=== PATIENT | male | born 1990 | race Caucasian/White ===

== ENCOUNTER 2016-10-10 15:13 | Inpatient (IN) | payer BC, OTHER ==
[2016-10-10 21:09] VITALS: BMI 26.4
--- NOTE | 2016-10-10 21:26 | HP ---
COWS - Scale Resting Pulse: 0= [place] 80 or Below Sweatin=Flushed/Facial Moisture Restless Observation: 3= Extraneous Movement Pupil Size: 2= Moderately Dilated Bone or Joint Aches: 2= Severe Diffuse Aches Runny Nose/ Eye Tearin= Runny Nose/Eyes GI Upset > 30mins: 3= Vomiting/Diarrhea Tremor Observation: 2= Slight Tremor Visible Yawning Observation: 2= >3x During Session Anxiety or Irritability: 2=Irritable/Anxious Goose Flesh Skin: 0=Smooth Skin COWS Score: 20 CIWA Score - CIWA Score Nausea/Vomitin Muscle Tremors: 3 Anxiety: 3 Agitation: 3 Paroxysmal Sweats: 2 Orientation: 0-Oriented Tacttile Disturbances: 2-Mild Itch/Numbness/Burn Auditory Disturbances: 2-Mild Harshness/Frighten Visual Disturbances: 2-Mild Sensitivity Headache: 2-Mild CIWA-Ar Total Score: 22 Admission ROS BHS - HPI Chief Complaint: i am here to stop using drugs Allergies/Adverse Reactions: Allergies Allergy/AdvReac Type Severity Reaction Status Date / Time No Known Allergies Allergy Verified 10/10/16 20:48 History of Present Illness: this 25 years old male with heroin,xanax,and cocaine dependence,seeking detox, last treatment 11/29 [facility],then [facility] for 2 weeks relapsed for 5 months nicotine dependence denied medical problem anxiety,depression,insomnia longest period of sobriety 2 years Exam Limitations: No Limitations - Ebola screening Have you traveled outside of the country in the last 21 days: No - Review of Systems Constitutional: Chills, Diaphoresis, Loss of Appetite, Malaise, Night Sweats, Changes in sleep, Weakness EENT: reports: Tearing, Nose Congestion Respiratory: reports: No Symptoms reported Cardiac: reports: No Symptoms Reported GI: reports: Diarrhea, Nausea, Vomiting, Abdominal cramping : reports: No Symptoms Reported Musculoskeletal: reports: Back Pain, Joint Pain, Muscle Pain, Joint Stiffness Integumentary: reports: Dryness Neuro: reports: Headache, Tremors Endocrine: reports: No Symptoms Reported Hematology: reports: No Symptoms Reported Psychiatric: reports: Anxious (insomnia), Depressed Patient History - Patient Medical History Hx Anemia: No Hx Asthma: No Hx Chronic Obstructive Pulmonary Disease (COPD): No Hx Cancer: No Hx Cardiac Disorders: No Hx Congestive Heart Failure: No Hx Hypertension: No Hx Hypercholesterolemia: No Hx Pacemaker: No HX Cerebrovascular Accident: No Hx Seizures: No Hx Dementia: No Hx Diabetes: No Hx Gastrointestinal Disorders: No Hx Liver Disease: No Hx Genitourinary Disorders: No Hx Sexually Transmitted Disorders: No Hx Renal Disease (ESRD): No Hx Thyroid Disease: No Hx Human Immunodeficiency Virus (HIV): No (last 2015 negative) Hx Hepatitis C: No Hx Depression: Yes (AND ANXIETY) Hx Suicide Attempt: No Hx Bipolar Disorder: No Hx Schizophrenia: No Other Medical History: insomnia,no suicidal,no homicidal - Patient Surgical History Past Surgical History: No Hx Neurologic Surgery: No Hx Cataract Extraction: No Hx Cardiac Surgery: No Hx Lung Surgery: No Hx Breast Surgery: No Hx Breast Biopsy: No Hx Abdominal Surgery: No Hx Appendectomy: No Hx Cholecystectomy: No Hx Genitourinary Surgery: No Hx Section: No Hx Orthopedic Surgery: No Anesthesia Reaction: No - PPD History Previous Implant?: Yes Documented Results: Negative w/proof Date: 12/25/14 Results: 0 mm PPD to be Administered?: No - Smoking Cessation Smoking history: Current every day smoker Have you smoked in the past 12 months: Yes Aproximately how many cigarettes per day: 10 Cigars Per Day: 0 Hx Chewing Tobacco Use: No Initiated information on smoking cessation: No 'Breaking Loose' booklet given: 10/10/16 - Substance & Tx. History Hx Alcohol Use: Yes Hx Substance Use: Yes Substance Use Type: Alcohol, Cocaine, Heroin, Tranquilizers Hx Substance Use Treatment: Yes - Substances Abused Heroin Route: Injection Frequency: Daily Amount used: 5 BAGS Age of first use: 21 Date of Last Use: 10/10/16 Alprazolam (Xanax) Route: Oral Frequency: Daily Amount used: 4mg Age of first use: 18 Date of Last Use: 10/10/16 Alcohol Route: Oral Frequency: Daily Amount used: liquor- 1 pint, beer- 1 six pack Age of first use: 15 Date of Last Use: 10/09/16 Cocaine Route: Injection Frequency: Daily Amount used: 3gm Age of first use: 21 Date of Last Use: 10/10/16 Family Disease History - Family Disease History Family Disease History: Other: Father (dependent on alcohol), Mother (opiate use ) Admission Physical Exam BHS - Vital Signs Vital Signs: Vital Signs - 24 hr 10/10/16 21:06 Temperature 96.4 F L Pulse Rate 67 Respiratory 18 Rate Blood Pressure 130/90 - Physical General Appearance: Yes: Moderate Distress, Thin, Tremorous, Irritable, Sweating , Anxious HEENTM: Yes: Hearing grossly Normal, Normal ENT Inspection, LAMIN, Pharynx Normal Respiratory: Yes: Within Normal Limits, Lungs Clear, No Respiratory Distress Neck: Yes: Within Normal Limits, Supple, Trachea in good position Breast: Yes: Within Normal Limits Cardiology: Yes: Regular Rhythm, Regular Rate, S1, S2 Abdominal: Yes: Within Normal Limits, Normal Bowel Sounds, Non Tender, Flat, Soft Genitourinary: Yes: Within Normal Limits Back: Yes: Muscle Spasm Musculoskeletal: Yes: full range of Motion, Back pain, Joint Stiffness, Muscle Pain Extremities: Yes: Within Normal Limits, Normal Range of Motion, Tremors 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 intact, Fully Oriented, Alert, Motor Strength 5/5 Integumentary: Yes: Dry Lymphatic: Yes: Within Normal Limits - Diagnostic (1) Alcohol dependence with uncomplicated withdrawal Current Visit: No Status: Acute (2) Opioid dependence with withdrawal Current Visit: No Status: Acute (3) Sedative, hypnotic or anxiolytic dependence with withdrawal, uncomplicated Current Visit: No Status: Acute (4) Anxiety and depression Current Visit: No Status: Chronic (5) Cocaine abuse Current Visit: No Status: Chronic (6) Insomnia Current Visit: Yes Status: Acute (7) Nicotine dependence Current Visit: No Status: Chronic Qualifiers: Nicotine product type: cigarettes Substance use status: uncomplicated Qualified Code(s): F17.210 - Nicotine dependence, cigarettes, uncomplicated Cleared for Admission [facility] - Detox or Rehab [facility] Level of Care: Medically Managed Detox Regimen/Protocol: Methadone/Valium [facility] Breath Alcohol Content Breath Alcohol Content: 0 Urine Drug Screen - Results Drug Screen Negative: No Urine Drug Screen Results: ROBB-Cocaine, OPI-Opiates, BZO-Benzodiazepines
[2016-10-10] MEDS ORDERED: MAGNESIUM CITRATE 300 ML BOTTLE PO PRN (21:39)
[2016-10-10] MEDS ORDERED: hydrOXYzine PAMOATE 50 MG CAPSULE (FP) PO PRN (21:39)
[2016-10-10] MEDS ORDERED: LOPERAMIDE HCL 2 MG CAPSULE PO PRN (21:39)
[2016-10-10] MEDS ORDERED: MAGNESIUM HYDROX 2400MG/30ML ORAL SUSPENSION 30 ML CUP PO PRN (21:39)
[2016-10-10] MEDS ORDERED: MAG HYDROX/AL HYDROX/SIMETH 30 ML UNIT-DOSE CUP PO PRN (21:39)
[2016-10-10] MEDS ORDERED: METHADONE HCL 10 MG TABLET (FOR DETOX USE ONLY) PO ONE ×2 (21:39→23:00)
[2016-10-10] MEDS ORDERED: diphenhydrAMINE HCL 50 MG CAPSULE PO PRN (21:39)
[2016-10-10] MEDS ORDERED: diazePAM 5 MG TABLET PO ONE (21:39)
[2016-10-10] MEDS ORDERED: MENTHOL/PHENOL 1 EACH UD MM PRN (21:39)
[2016-10-10] MEDS ORDERED: IBUPROFEN 400 MG TABLET (FP) PO PRN (21:39)
[2016-10-10] MEDS ORDERED: guaiFENesin/D-METHORPHAN HB 10 ML UNIT-DOSE CUPS PO PRN (21:39)
[2016-10-10] MEDS ORDERED: P-EPHED 60MG/TRIPROLIDI 2.5MG TABLET PO PRN (21:39)
[2016-10-10] MEDS ORDERED: ACETAMINOPHEN 325 MG TABLET (FP) PO PRN (21:39)
[2016-10-10] MEDS: diazePAM 5 MG TABLET PO SCH (22:01)
[2016-10-10] MEDS: THIAMINE HCL 100 MG TABLET (FP) PO SCH (22:02)
[2016-10-10] MEDS: cloNIDine HCL 0.1 MG TABLET PO SCH (22:02)
[2016-10-11 01:45] LABS: URINE APPEARANCE CLEAR; URINE BILIRUBIN NEGATIVE (NEGATIVE); URINE BLOOD NEGATIVE (NEGATIVE); URINE COLOR YELLOW; URINE GLUCOSE (UA) NEGATIVE (NEGATIVE); URINE KETONE NEGATIVE (NEGATIVE); URINE LEUK ESTERASE NEGATIVE (NEGATIVE); URINE NITRITE NEGATIVE (NEGATIVE); URINE PROTEIN NEGATIVE (NEGATIVE); URINE UROBILINOGEN NEGATIVE mg/dL (0.2-1.0)
[2016-10-11] MEDS: diazePAM 5 MG TABLET PO SCH ×3 (05:41→22:25)
[2016-10-11] MEDS ORDERED: METHADONE HCL 10 MG TABLET (FOR DETOX USE ONLY) PO SCH (10:00)
[2016-10-11] MEDS: diazePAM 5 MG TABLET PO PRN ×3 (10:06→19:23)
[2016-10-11] MEDS: PRENATAL VITAMINS W/ FOLIC ACID TABLET (FP) PO SCH (10:07)
[2016-10-11] MEDS: cloNIDine HCL 0.1 MG TABLET PO SCH ×2 (10:07→22:24)
[2016-10-11 10:37] LABS: MCH 30.5 pg (25.7-33.7); MCHC 34.8 g/dl (32.0-35.9); MEAN CELL VOLUME 87.7 fl (80-96); PLATELET COUNT 178 K/MM3 (134-434); RDW 12.2 % (11.9-15.9); WHITE BLOOD COUNT 5.2 K/mm3 (4.0-10.0)
[2016-10-11 10:45] LABS: ALBUMIN 3.6 g/dl (3.4-5.0); ANION GAP 8 (8-16); CALCIUM 8.6 mg/dL (8.5-10.1); CO2 30 mmol/L (21-32); GLUCOSE,RANDOM 71 mg/dL (74-106)
[2016-10-11 10:49] LABS: ALK PHOS 60 U/L (45-117); BILIRUBIN,TOTAL 1.6 mg/dL (0.2-1.0); SGOT/AST 22 U/L (15-37); SGPT/ALT 24 U/L (12-78); TOT PROT 6.5 g/dl (6.4-8.2)
--- NOTE | 2016-10-11 10:49 | CONSULT ---
[facility] Psychiatric Consult - Data Date of interview: 10/11/16 Admission source: [facility] Identifying data: This is 25 year old male, abele residing with his father. Substance Abuse History: Patient reports started heroin at age of 21, injecting 5 bags a day, Xanax started at age of 18, daily use up to 4 mg, alcohol starte rupa age of 15, daily consumes liquor 1 pint, beer 1 six packs. Medical History: none reported Psychiatric History: Past history of ADHD, treated with abilify, ritalin, stopped medications years ago, reports one psychiatric hospitaliztion at age of 15 for 2 days at [facility] in [place] Not on any psychotropics now. 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 He reports he sleeps well, appetite is improving. Physical/Sexual Abuse/Trauma History: Denies history of sexual,physical and verbal abuse. Mental Status Exam - Mental Status Exam Alert and Oriented to: Time, Place, Person Cognitive Function: Grossly Intact Patient Appearance: Well Groomed Mood: Anxious Affect: Appropriate, Mood Congruent Patient Behavior: Appropriate, Cooperative Speech Pattern: Appropriate Voice Loudness: Normal Thought Process: Intact, Goal Oriented Thought Disorder: Not Present Hallucinations: Denies Suicidal Ideation: Denies Homicidal Ideation: Denies Insight/Judgement: Fair Sleep: Fair Appetite: Fair Muscle strength/Tone: Normal Gait/Station: Normal Psychiatric Findings - Problem List ([place] 1, 2,3) (1) Drug-induced mood disorder Current Visit: No Status: Acute (2) Opioid dependence Current Visit: No Status: Active (3) Alcohol dependence with uncomplicated withdrawal Current Visit: No Status: Acute (4) Opioid dependence with withdrawal Current Visit: No Status: Acute (5) Sedative dependence Current Visit: No Status: Acute (6) Sedative, hypnotic or anxiolytic dependence with withdrawal, uncomplicated Current Visit: No Status: Acute - Initial Treatment Plan Initial Treatment Plan: continue detox, psychotherapy and supports provided.
--- NOTE | 2016-10-11 16:50 | PN ---
[facility] CIWA - CIWA Score Nausea/Vomitin-No Nausea/No Vomiting Muscle Tremors: 3 Anxiety: 4-Mod. Anxious/Guarded Agitation: 1-Slight > Activity Paroxysmal Sweats: 3 Orientation: 0-Oriented Tacttile Disturbances: 3-Moderate Itch/Numb/Burn Auditory Disturbances: 2-Mild Harshness/Frighten Visual Disturbances: 3-Moderate Sensitivity Headache: 0-None Present CIWA-Ar Total Score: 19 BHS COWS - Scale Resting Pulse: 0= [place] 80 or Below Sweatin= Chills/Flushing Restless Observation: 0= Sits Still Pupil Size: 0= Normal to Room Light Bone or Joint Aches: 2= Severe Diffuse Aches Runny Nose/ Eye Tearin= Runny Nose/Eyes GI Upset > 30mins: 1= Stomach Cramp Tremor Observation of Outstretched Hands: 2= Slight Tremor Visible Yawning Observation: 2= >3x During Session Anxiety or Irritability: 2=Irritable/Anxious Goose Flesh Skin: 3=Piloerection COWS Score: 15 S Progress Note (SOAP) Subjective: Stomach Cramping, Anxious, Body Aches. Objective: PT. A & O X 3, OBSERVED AMBULATING ON UNIT. NO ACUTE DISTRESS. 10/11/16 16:48 Vital Signs Temperature 96.3 F L 10/11/16 13:59 Pulse Rate 54 L 10/11/16 13:59 Respiratory Rate 18 10/11/16 13:59 Blood Pressure 109/51 10/11/16 13:59 O2 Sat by Pulse Oximetry (%) Laboratory Tests 10/10/16 10/11/16 10/11/16 22:36 08:00 08:00 WBC 5.2 RBC 4.53 Hgb 13.8 Hct 39.7 MCV 87.7 MCH 30.5 MCHC 34.8 RDW 12.2 Plt Count 178 MPV 9.0 Sodium 139 Potassium 3.6 Chloride 101 Carbon Dioxide 30 Anion Gap 8 BUN 16 Creatinine 1.0 D Creat Clearance w eGFR > 60 Random Glucose 71 L D Calcium 8.6 Total Bilirubin 1.6 H D AST 22 D ALT 24 D Alkaline Phosphatase 60 Total Protein 6.5 Albumin 3.6 Urine Color Yellow Urine Appearance Clear Urine pH 6.0 D Ur Specific [place] 1.025 Urine Protein Negative Urine Glucose (UA) Negative Urine Ketones Negative Urine Blood Negative Urine Nitrite Negative Urine Bilirubin Negative Urine Urobilinogen Negative Ur Leukocyte Esterase Negative RPR Titer 10/11/16 08:00 WBC RBC Hgb Hct MCV MCH MCHC RDW Plt Count MPV Sodium Potassium Chloride Carbon Dioxide Anion Gap BUN Creatinine Creat Clearance w eGFR Random Glucose Calcium Total Bilirubin AST ALT Alkaline Phosphatase Total Protein Albumin Urine Color Urine Appearance Urine pH Ur Specific [place] Urine Protein Urine Glucose (UA) Urine Ketones Urine Blood Urine Nitrite Urine Bilirubin Urine Urobilinogen Ur Leukocyte Esterase RPR Titer Nonreactive LABS NOTED. Assessment: 10/11/16 16:49 WITHDRAWAL SYMPTOMS. Plan: CONTINUE DETOX. INCREASE PO FLUID INTAKE.
[2016-10-11] MEDS: THIAMINE HCL 100 MG TABLET (FP) PO SCH (22:25)
[2016-10-11] MEDS: CYCLOBENZAPRINE HCL 10 MG TABLET (FP) PO PRN (22:26)
[2016-10-12] MEDS: diazePAM 5 MG TABLET PO PRN ×3 (05:51→16:52)
[2016-10-12] MEDS: METHADONE HCL 5 MG TABLET (FOR DETOX USE ONLY) PO SCH (10:19)
[2016-10-12] MEDS: cloNIDine HCL 0.1 MG TABLET PO SCH ×2 (10:19→22:12)
[2016-10-12] MEDS: diazePAM 5 MG TABLET PO SCH ×2 (10:19→22:12)
[2016-10-12] MEDS: PRENATAL VITAMINS W/ FOLIC ACID TABLET (FP) PO SCH (10:19)
--- NOTE | 2016-10-12 16:00 | PN ---
S CIWA - CIWA Score Nausea/Vomitin Muscle Tremors: 4-Moderate,w/Arms Extend Anxiety: 4-Mod. Anxious/Guarded Agitation: 4-Moderately Restless Paroxysmal Sweats: 1-Minimal Palms Moist Orientation: 0-Oriented Tacttile Disturbances: 1-Very Mild Itch/Numbness Auditory Disturbances: 0-None Visual Disturbances: 0-None Headache: 2-Mild CIWA-Ar Total Score: 19 BHS COWS - Scale Resting Pulse: 0= [place] 80 or Below Sweatin= Chills/Flushing Restless Observation: 3= Extraneous Movement Pupil Size: 1= Pupils >than Normal Bone or Joint Aches: 2= Severe Diffuse Aches Runny Nose/ Eye Tearin= Nasal Congestion GI Upset > 30mins: 2= Nausea/Diarrhea Tremor Observation of Outstretched Hands: 2= Slight Tremor Visible Yawning Observation: 1= 1-2x During Session Anxiety or Irritability: 2=Irritable/Anxious Goose Flesh Skin: 0=Smooth Skin COWS Score: 15 S Progress Note (SOAP) Subjective: Sweating, chills, tremor, interrupted sleep Objective: 10/12/16 15:59 Last Vital Signs Temp Pulse Resp BP Pulse Ox 96.8 F L 61 18 112/61 10/12/16 14:01 10/12/16 14:01 10/12/16 14:01 10/12/16 14:01 Laboratory Tests 10/10/16 10/11/16 10/11/16 22:36 08:00 08:00 WBC 5.2 RBC 4.53 Hgb 13.8 Hct 39.7 MCV 87.7 MCH 30.5 MCHC 34.8 RDW 12.2 Plt Count 178 MPV 9.0 Sodium 139 Potassium 3.6 Chloride 101 Carbon Dioxide 30 Anion Gap 8 BUN 16 Creatinine 1.0 D Creat Clearance w eGFR > 60 Random Glucose 71 L D Calcium 8.6 Total Bilirubin 1.6 H D AST 22 D ALT 24 D Alkaline Phosphatase 60 Total Protein 6.5 Albumin 3.6 Urine Color Yellow Urine Appearance Clear Urine pH 6.0 D Ur Specific [place] 1.025 Urine Protein Negative Urine Glucose (UA) Negative Urine Ketones Negative Urine Blood Negative Urine Nitrite Negative Urine Bilirubin Negative Urine Urobilinogen Negative Ur Leukocyte Esterase Negative RPR Titer 10/11/16 08:00 WBC RBC Hgb Hct MCV MCH MCHC RDW Plt Count MPV Sodium Potassium Chloride Carbon Dioxide Anion Gap BUN Creatinine Creat Clearance w eGFR Random Glucose Calcium Total Bilirubin AST ALT Alkaline Phosphatase Total Protein Albumin Urine Color Urine Appearance Urine pH Ur Specific [place] Urine Protein Urine Glucose (UA) Urine Ketones Urine Blood Urine Nitrite Urine Bilirubin Urine Urobilinogen Ur Leukocyte Esterase RPR Titer Nonreactive Labs noted Assessment: 10/12/16 15:59 Withdrawal symptoms Plan: Continue detox
[2016-10-12] MEDS: THIAMINE HCL 100 MG TABLET (FP) PO SCH (22:12)
[2016-10-13] MEDS: CYCLOBENZAPRINE HCL 10 MG TABLET (FP) PO PRN ×2 (06:04→14:46)
[2016-10-13] MEDS: diazePAM 5 MG TABLET PO PRN ×3 (06:04→17:07)
--- NOTE | 2016-10-13 10:00 | EKG ---
Test Reason : Blood Pressure : / mmHG Vent. Rate : 061 BPM Atrial Rate : 061 BPM P-R Int : 156 ms QRS Dur : 088 ms QT Int : 420 ms P-R-T Axes : 061 075 055 degrees QTc Int : 422 ms NORMAL SINUS RHYTHM POSSIBLE LEFT ATRIAL ENLARGEMENT LEFT VENTRICULAR HYPERTROPHY ABNORMAL ECG NO PREVIOUS ECGS AVAILABLE Confirmed by KAUR BLAS, SERVANDO ([id number]) on 10/13/2016 9:59:06 AM Referred By: Greg Webber Confirmed By:SERVANDO DIETRICH MD
[2016-10-13] MEDS: METHADONE HCL 5 MG TABLET (FOR DETOX USE ONLY) PO SCH (10:19)
[2016-10-13] MEDS: cloNIDine HCL 0.1 MG TABLET PO SCH ×2 (10:19→22:29)
[2016-10-13] MEDS: diazePAM 5 MG TABLET PO SCH ×2 (10:19→22:28)
[2016-10-13] MEDS: PRENATAL VITAMINS W/ FOLIC ACID TABLET (FP) PO SCH (10:19)
--- NOTE | 2016-10-13 14:53 | PN ---
BHS Progress Note (SOAP) Subjective: Sweating,interrupted sleep,restless Objective: 10/13/16 14:52 Vital Signs - 8 hr 10/13/16 10/13/16 09:30 13:30 Temperature 96.5 F L 96.6 F L Pulse Rate 60 46 L Respiratory 18 19 Rate Blood Pressure 119/69 121/57 Laboratory Last Values WBC 5.2 K/mm3 (4.0-10.0) 10/11/16 08:00 RBC 4.53 M/mm3 (4.00-5.60) 10/11/16 08:00 Hgb 13.8 GM/dL (11.7-16.9) 10/11/16 08:00 Hct 39.7 % (35.4-49) 10/11/16 08:00 MCV 87.7 fl (80-96) 10/11/16 08:00 MCH 30.5 pg (25.7-33.7) 10/11/16 08:00 MCHC 34.8 g/dl (32.0-35.9) 10/11/16 08:00 RDW 12.2 % (11.9-15.9) 10/11/16 08:00 Plt Count 178 K/MM3 (134-434) 10/11/16 08:00 MPV 9.0 fl (7.5-11.1) 10/11/16 08:00 Sodium 139 mmol/L (136-145) 10/11/16 08:00 Potassium 3.6 mmol/L (3.5-5.1) 10/11/16 08:00 Chloride 101 mmol/L (98-107) 10/11/16 08:00 Carbon Dioxide 30 mmol/L (21-32) 10/11/16 08:00 Anion Gap 8 (8-16) 10/11/16 08:00 BUN 16 mg/dL (7-18) 10/11/16 08:00 Creatinine 1.0 mg/dL (0.7-1.3) D 10/11/16 08:00 Creat Clearance w eGFR > 60 (>60) 10/11/16 08:00 Random Glucose 71 mg/dL (74-106) L D 10/11/16 08:00 Calcium 8.6 mg/dL (8.5-10.1) 10/11/16 08:00 Total Bilirubin 1.6 mg/dL (0.2-1.0) H D 10/11/16 08:00 AST 22 U/L (15-37) D 10/11/16 08:00 ALT 24 U/L (12-78) D 10/11/16 08:00 Alkaline Phosphatase 60 U/L (45-117) 10/11/16 08:00 Total Protein 6.5 g/dl (6.4-8.2) 10/11/16 08:00 Albumin 3.6 g/dl (3.4-5.0) 10/11/16 08:00 Urine Color Yellow 10/10/16 22:36 Urine Appearance Clear 10/10/16 22:36 Urine pH 6.0 (5.0-8.0) D 10/10/16 22:36 Ur Specific [place] 1.025 (1.005-1.025) 10/10/16 22:36 Urine Protein Negative (NEGATIVE) 10/10/16 22:36 Urine Glucose (UA) Negative (NEGATIVE) 10/10/16 22:36 Urine Ketones Negative (NEGATIVE) 10/10/16 22:36 Urine Blood Negative (NEGATIVE) 10/10/16 22:36 Urine Nitrite Negative (NEGATIVE) 10/10/16 22:36 Urine Bilirubin Negative (NEGATIVE) 10/10/16 22:36 Urine Urobilinogen Negative mg/dL (0.2-1.0) 10/10/16 22:36 Ur Leukocyte Esterase Negative (NEGATIVE) 10/10/16 22:36 RPR Titer Nonreactive (NONREACTIVE) 10/11/16 08:00 labs noted Assessment: 10/13/16 14:52 Withdrawal sx. Plan: Continue detox
[2016-10-13] MEDS: THIAMINE HCL 100 MG TABLET (FP) PO SCH (22:28)
[2016-10-14] MEDS: CYCLOBENZAPRINE HCL 10 MG TABLET (FP) PO PRN (06:49)
[2016-10-14] MEDS: cloNIDine HCL 0.1 MG TABLET PO SCH (09:50)
[2016-10-14] MEDS: PRENATAL VITAMINS W/ FOLIC ACID TABLET (FP) PO SCH (09:50)
[2016-10-14] MEDS ORDERED: METHADONE HCL 10 MG TABLET (FOR DETOX USE ONLY) PO SCH (10:00)
[2016-10-14] MEDS ORDERED: diazePAM 5 MG TABLET PO SCH (10:00)
[2016-10-14 10:06] VITALS: BP 129/58; PULSE 73; TEMP 96.7
--- NOTE | 2016-10-14 10:42 | DS ---
[facility] Detox Discharge Summary Admission Date: 10/10/16 Discharge Date: 10/14/16 - History Present History: Alcohol Dependence, Opioid Dependence, Sedative Dependence Additional Comments: PT DECLINED TO COMPLETE DETOX DESPITE ENCOURAGEMENT TO FOCUS ON TREATMENT AND SOBRIETY. PT STATES HE HAS TO LEAVE TO COLLECT HIS MONEY FROM HIS EX-GIRLFRIED AND DOESN'T WANT HER TO HOLD IT. PT IS ALERT O X 3. NAD. BUT LIMITED INSIGHT TO TREATMENT GOALS. PT SPOKE TO HIS COUNSELOR. Pertinent Past History: SEIZURE DISORDER DEPRESSION/ANXIETY HX HX ADHD - Physical Exam Results Vital Signs: Vital Signs Temperature 96.7 F L 10/14/16 10:05 Pulse Rate 73 10/14/16 10:05 Respiratory Rate 18 10/14/16 10:05 Blood Pressure 129/58 10/14/16 10:05 O2 Sat by Pulse Oximetry (%) Pertinent Admission Physical Exam Findings: WITHDRAWAL SX Vital Signs Temperature 96.7 F L 10/14/16 10:05 Pulse Rate 73 10/14/16 10:05 Respiratory Rate 18 10/14/16 10:05 Blood Pressure 129/58 10/14/16 10:05 O2 Sat by Pulse Oximetry (%) Laboratory Last Values WBC 5.2 K/mm3 (4.0-10.0) 10/11/16 08:00 RBC 4.53 M/mm3 (4.00-5.60) 10/11/16 08:00 Hgb 13.8 GM/dL (11.7-16.9) 10/11/16 08:00 Hct 39.7 % (35.4-49) 10/11/16 08:00 MCV 87.7 fl (80-96) 10/11/16 08:00 MCH 30.5 pg (25.7-33.7) 10/11/16 08:00 MCHC 34.8 g/dl (32.0-35.9) 10/11/16 08:00 RDW 12.2 % (11.9-15.9) 10/11/16 08:00 Plt Count 178 K/MM3 (134-434) 10/11/16 08:00 MPV 9.0 fl (7.5-11.1) 10/11/16 08:00 Sodium 139 mmol/L (136-145) 10/11/16 08:00 Potassium 3.6 mmol/L (3.5-5.1) 10/11/16 08:00 Chloride 101 mmol/L (98-107) 10/11/16 08:00 Carbon Dioxide 30 mmol/L (21-32) 10/11/16 08:00 Anion Gap 8 (8-16) 10/11/16 08:00 BUN 16 mg/dL (7-18) 10/11/16 08:00 Creatinine 1.0 mg/dL (0.7-1.3) D 10/11/16 08:00 Creat Clearance w eGFR > 60 (>60) 10/11/16 08:00 Random Glucose 71 mg/dL (74-106) L D 10/11/16 08:00 Calcium 8.6 mg/dL (8.5-10.1) 10/11/16 08:00 Total Bilirubin 1.6 mg/dL (0.2-1.0) H D 10/11/16 08:00 AST 22 U/L (15-37) D 10/11/16 08:00 ALT 24 U/L (12-78) D 10/11/16 08:00 Alkaline Phosphatase 60 U/L (45-117) 10/11/16 08:00 Total Protein 6.5 g/dl (6.4-8.2) 10/11/16 08:00 Albumin 3.6 g/dl (3.4-5.0) 10/11/16 08:00 Urine Color Yellow 10/10/16 22:36 Urine Appearance Clear 10/10/16 22:36 Urine pH 6.0 (5.0-8.0) D 10/10/16 22:36 Ur Specific [place] 1.025 (1.005-1.025) 10/10/16 22:36 Urine Protein Negative (NEGATIVE) 10/10/16 22:36 Urine Glucose (UA) Negative (NEGATIVE) 10/10/16 22:36 Urine Ketones Negative (NEGATIVE) 10/10/16 22:36 Urine Blood Negative (NEGATIVE) 10/10/16 22:36 Urine Nitrite Negative (NEGATIVE) 10/10/16 22:36 Urine Bilirubin Negative (NEGATIVE) 10/10/16 22:36 Urine Urobilinogen Negative mg/dL (0.2-1.0) 10/10/16 22:36 Ur Leukocyte Esterase Negative (NEGATIVE) 10/10/16 22:36 RPR Titer Nonreactive (NONREACTIVE) 10/11/16 08:00 - Treatment Hospital Course: Discharged Condition Good - Medication Discharge Medications: Ambulatory Orders NK [No Known Home Medication] 09/17/14 - Diagnosis (1) Alcohol dependence with uncomplicated withdrawal Current Visit: Yes Status: Acute (2) Opioid dependence with withdrawal Current Visit: Yes Status: Acute (3) Sedative, hypnotic or anxiolytic dependence with withdrawal, uncomplicated Current Visit: Yes Status: Acute (4) Nicotine dependence Current Visit: Yes Status: Chronic Qualifiers: Nicotine product type: cigarettes Substance use status: in withdrawal Qualified Code(s): F17.213 - Nicotine dependence, cigarettes, with withdrawal (5) Seizure Current Visit: Yes Status: Suspected (6) Drug-induced mood disorder Current Visit: Yes Status: Acute - AMA Did Patient Leave Against Medical Advice: Yes (AMA)
[2016-10-15] MEDS ORDERED: METHADONE HCL 5 MG TABLET (FOR DETOX USE ONLY) PO SCH (06:00)
== END 2016-10-14 10:46 | disposition left against medical advice (07) | DRG 894 ==
LOC: YASAS 15:13 → Y3N 21:01
PROVIDERS: ADMIT Internal Medicine; ATTEND Internal Medicine
PROC: HZ2ZZZZ Detoxification Services for Substance Abuse Treatment (ICD-10-PCS; principal; 2016-10-14)
DX: F11.23 Opioid dependence with withdrawal (principal); F13.230 Sedative, hypnotic or anxiolytic dependence with withdrawal, uncomplicated; F10.230 Alcohol dependence with withdrawal, uncomplicated; F17.210 Nicotine dependence, cigarettes, uncomplicated; F19.24 Other psychoactive substance dependence with psychoactive substance-induced mood disorder; F41.8 Other specified anxiety disorders; F90.9 Attention-deficit hyperactivity disorder, unspecified type; G47.00 Insomnia, unspecified
CPT/HCPCS: 36415; 80053; 81003; 85027; 86593; 93005; 93010

== ENCOUNTER 2017-07-04 16:12 | Inpatient (IN) | payer BC, OTHER ==
[2017-07-04 16:38] VITALS: BMI 29.9
--- NOTE | 2017-07-04 20:06 | HP ---
COWS - Scale Resting Pulse: 0= [place] 80 or Below Sweatin=Flushed/Facial Moisture Restless Observation: 1= Difficult to Sit Still Pupil Size: 1= Pupils >than Normal Bone or Joint Aches: 4=Acute Joint/Muscle Pain Runny Nose/ Eye Tearin= Nasal Congestion GI Upset > 30mins: 0= None Tremor Observation: 2= Slight Tremor Visible Yawning Observation: 4= Several Times/Minute Anxiety or Irritability: 2=Irritable/Anxious Goose Flesh Skin: 0=Smooth Skin COWS Score: 17 CIWA Score - CIWA Score Nausea/Vomitin-No Nausea/No Vomiting Muscle Tremors: 3 Anxiety: 3 Agitation: 3 Paroxysmal Sweats: 3 Orientation: 0-Oriented Tacttile Disturbances: 0-None Auditory Disturbances: 0-None Visual Disturbances: 0-None Headache: 4-Moderately Severe CIWA-Ar Total Score: 16 Admission ROS S - HPI Chief Complaint: C/O WITHDRAWAL SX'S . SEEKING DETOX FOR ALCHOL, BENZO AND HEROINE Allergies/Adverse Reactions: Allergies Allergy/AdvReac Type Severity Reaction Status Date / Time No Known Allergies Allergy Verified 07/04/17 18:09 History of Present Illness: 26 Y.O. MALE WITH POLYSUBSTANCE ABUSE HERE FOR INPATIENT DETOX AFTER A DRUG OVERDOSE YESTERDAY. HE WAS SEEN AND STABILIZED AT [facility]. CLIENT WAS LAST HERE 10 MONTHS AGO. DENIES ANY INPATIENT TXMENT SINCE.SELF REFERRED. DENIES ANY SIGNIFICANT PERIOD OF CLEAN TIME. PMHX HEPC, ANXIETY, DEPRESSION AND ADHD. DENIES ANY SI/HI AND A/V HALLUCINATIONS. DENIES LEGALS Exam Limitations: No Limitations - Ebola screening Have you traveled outside of the country in the last 21 days: No (N) Have you had contact with anyone from an Ebola affected area: No Have you been sick,other than usual withdrawal symptoms: No Do you have a fever: No - Review of Systems Constitutional: Chills, Loss of Appetite, Malaise, Night Sweats, Changes in sleep EENT: reports: Nose Congestion Respiratory: reports: No Symptoms reported Cardiac: reports: No Symptoms Reported GI: reports: Poor Appetite, Poor Fluid Intake : reports: No Symptoms Reported Musculoskeletal: reports: Joint Pain, Other (GENERAL AMLAISE) Integumentary: reports: No Symptoms Reported Neuro: reports: Headache Endocrine: reports: No Symptoms Reported Hematology: reports: No Symptoms Reported Psychiatric: reports: Anxious, Depressed (DENIES SI/HI) Other Systems: Reviewed and Negative Patient History - Patient Medical History Hx Anemia: No Hx Asthma: No Hx Chronic Obstructive Pulmonary Disease (COPD): No Hx Cancer: No Hx Cardiac Disorders: No Hx Congestive Heart Failure: No Hx Hypertension: No Hx Hypercholesterolemia: No Hx Pacemaker: No HX Cerebrovascular Accident: No Hx Seizures: No Hx Dementia: No Hx Diabetes: No Hx Gastrointestinal Disorders: No Hx Liver Disease: No Hx Genitourinary Disorders: No Hx Sexually Transmitted Disorders: No Hx Renal Disease (ESRD): No Hx Thyroid Disease: No Hx Human Immunodeficiency Virus (HIV): No Hx Hepatitis C: Yes (NOT SURE) Hx Depression: Yes (AND ANXIETY) Hx Suicide Attempt: No Hx Bipolar Disorder: No Hx Schizophrenia: No Other Medical History: DENIES - Patient Surgical History Past Surgical History: No Hx Neurologic Surgery: No Hx Cataract Extraction: No Hx Cardiac Surgery: No Hx Lung Surgery: No Hx Breast Surgery: No Hx Breast Biopsy: No Hx Abdominal Surgery: No Hx Appendectomy: No Hx Cholecystectomy: No Hx Genitourinary Surgery: No Hx Section: No Hx Orthopedic Surgery: No Anesthesia Reaction: No - PPD History Previous Implant?: Yes Documented Results: Negative w/proof Implanted On Prior [facility] Admission?: Yes Date: 10/12/16 Results: 0 mm PPD to be Administered?: No - Smoking Cessation Smoking history: Current every day smoker Have you smoked in the past 12 months: Yes Aproximately how many cigarettes per day: 10 Cigars Per Day: 0 Hx Chewing Tobacco Use: No Initiated information on smoking cessation: Yes 'Breaking Loose' booklet given: 07/04/17 - Substance & Tx. History Hx Alcohol Use: Yes Hx Substance Use: Yes Substance Use Type: Alcohol, Heroin, Tranquilizers Hx Substance Use Treatment: Yes ([facility]) - Substances Abused Heroin Route: Injection Frequency: Daily Amount used: 10 bags Age of first use: 21 Date of Last Use: 07/03/17 Cocaine Route: Injection Frequency: 1-2 times per week Amount used: 1 Gm Age of first use: 21 Date of Last Use: 06/15/17 Alcohol Route: Oral Frequency: Daily Amount used: Beer - 2 6pks, Vodka 1/2 pt Age of first use: 24 Date of Last Use: 07/03/17 Xanax Route: Oral Frequency: Daily Amount used: 4mg Age of first use: 18 Date of Last Use: 07/02/17 Family Disease History - Family Disease History Family Disease History: Other: Father (dependent on alcohol), Mother (opiate use ) Admission Physical Exam [facility] - Vital Signs Vital Signs: Vital Signs - 24 hr 07/04/17 16:34 Temperature 95.7 F L Pulse Rate 52 L Respiratory 18 Rate Blood Pressure 117/61 - Physical General Appearance: Yes: Nourished, Appropriately Dressed, Moderate Distress, Tremorous, Other (FLUSHED FACE) HEENTM: Yes: EOMI, Normocephalic, Normal Voice, LAMIN (DIALATED PUPILS), Pharynx Normal, Nasal Congestion, Other (DRY MUCUS MEMBRANES) Respiratory: Yes: Chest Non-Tender, Lungs Clear, Normal Breath Sounds, No Respiratory Distress, No Accessory Muscle Use Neck: Yes: No masses,lesions,Nodules, Supple, Trachea in good position Breast: Yes: Breast Exam Deferred Cardiology: Yes: Regular Rhythm, Regular Rate, S1, S2 Abdominal: Yes: Normal Bowel Sounds, Non Tender, Flat, Soft Genitourinary: Yes: Within Normal Limits (NO C/O) Back: Yes: Normal Inspection Musculoskeletal: Yes: full range of Motion, Gait Steady Extremities: Yes: Normal Range of Motion, Non-Tender, Tremors Neurological: Yes: shoe ironer II-XII NML intact, Fully Oriented, Alert, Motor Strength 5/5 Integumentary: Yes: Dry, Warm, Track Anderson (TO BUE) Lymphatic: Yes: Within Normal Limits - Addiitonal Findings: POSITIVE WITHDRAWAL SX'S - Diagnostic (1) Cocaine dependence, uncomplicated Current Visit: Yes Status: Chronic (2) Dehydration Current Visit: Yes Status: Acute (3) Alcohol dependence with uncomplicated withdrawal Current Visit: Yes Status: Chronic (4) Opioid dependence with withdrawal Current Visit: Yes Status: Chronic (5) Sedative, hypnotic or anxiolytic dependence with withdrawal, uncomplicated Current Visit: Yes Status: Chronic (6) Anxiety and depression Current Visit: Yes Status: Suspected (7) Nicotine dependence Current Visit: Yes Status: Chronic Qualifiers: Nicotine product type: cigarettes Substance use status: in withdrawal Qualified Code(s): F17.213 - Nicotine dependence, cigarettes, with withdrawal (8) Substance induced mood disorder Current Visit: Yes Status: Suspected Cleared for Admission [facility] - Detox or Rehab [facility] Level of Care: Medically Managed Detox Regimen/Protocol: Methadone/Valium Claeared for Rehab Admission: No [facility] Breath Alcohol Content Breath Alcohol Content: 0 Urine Drug Screen - Results Drug Screen Negative: No Urine Drug Screen Results: OPI-Opiates, BZO-Benzodiazepines
[2017-07-04] MEDS ORDERED: P-EPHED 60MG/TRIPROLIDI 2.5MG TABLET PO PRN (20:20)
[2017-07-04] MEDS ORDERED: LOPERAMIDE HCL 2 MG CAPSULE PO PRN (20:20)
[2017-07-04] MEDS ORDERED: METHADONE HCL 10 MG TABLET (FOR DETOX USE ONLY) PO ONE ×2 (20:20→23:00)
[2017-07-04] MEDS ORDERED: NICOTINE POLACRILEX 2 MG GUM BC PRN (20:20)
[2017-07-04] MEDS ORDERED: ACETAMINOPHEN 325 MG TABLET (FP) PO PRN (20:20)
[2017-07-04] MEDS ORDERED: IBUPROFEN 400 MG TABLET (FP) PO PRN (20:20)
[2017-07-04] MEDS ORDERED: MAG HYDROX/AL HYDROX/SIMETH 30 ML UNIT-DOSE CUP PO PRN (20:20)
[2017-07-04] MEDS ORDERED: MAGNESIUM CITRATE 300 ML BOTTLE PO PRN (20:20)
[2017-07-04] MEDS ORDERED: guaiFENesin/D-METHORPHAN HB 10 ML UNIT-DOSE CUPS PO PRN (20:20)
[2017-07-04] MEDS ORDERED: MENTHOL/PHENOL 1 EACH UD MM PRN (20:20)
[2017-07-04] MEDS ORDERED: MAGNESIUM HYDROX 2400MG/30ML ORAL SUSPENSION 30 ML CUP PO PRN (20:20)
[2017-07-04] MEDS: diazePAM 5 MG TABLET PO ONE (21:13)
[2017-07-04] MEDS ORDERED: MELATONIN 5 MG TABLETS PO PRN (22:00)
[2017-07-04] MEDS: THIAMINE HCL 100 MG TABLET (FP) PO SCH (22:56)
[2017-07-04] MEDS: diazePAM 5 MG TABLET PO SCH (22:58)
[2017-07-05] MEDS: diazePAM 5 MG TABLET PO SCH ×3 (05:11→22:10)
--- NOTE | 2017-07-05 08:33 | EKG ---
Test Reason : Blood Pressure : / mmHG Vent. Rate : 058 BPM Atrial Rate : 058 BPM P-R Int : 144 ms QRS Dur : 092 ms QT Int : 412 ms P-R-T Axes : 042 075 040 degrees QTc Int : 404 ms SINUS BRADYCARDIA OTHERWISE NORMAL ECG WHEN COMPARED WITH ECG OF 10-OCT-2016 21:33, NO SIGNIFICANT CHANGE WAS FOUND Confirmed by CIARRA HEATH MD ([id number]) on 07/05/2017 8:32:55 AM Referred By: Confirmed By:CIARRA HEATH MD
[2017-07-05 09:57] LABS: HEMATOCRIT 44.2 % (35.4-49); HEMOGLOBIN 15.1 GM/dL (11.7-16.9); MCH 29.9 pg (25.7-33.7); MEAN CELL VOLUME 87.9 fl (80-96); PLATELET COUNT 180 K/MM3 (134-434); RBC 5.03 M/mm3 (4.00-5.60); WHITE BLOOD COUNT 4.9 K/mm3 (4.0-10.0)
[2017-07-05] MEDS ORDERED: METHADONE HCL 10 MG TABLET (FOR DETOX USE ONLY) PO SCH (10:00)
[2017-07-05 10:05] LABS: URINE APPEARANCE TURBID; URINE BILIRUBIN NEGATIVE (<2.0 mg/dL); URINE BLOOD NEGATIVE (NEGATIVE); URINE COLOR AMBER; URINE GLUCOSE (UA) NEGATIVE (NEGATIVE); URINE KETONE NEGATIVE (NEGATIVE); URINE LEUK ESTERASE NEGATIVE (NEGATIVE); URINE NITRITE NEGATIVE (NEGATIVE); URINE PROTEIN NEGATIVE (NEGATIVE); URINE UROBILINOGEN NEGATIVE mg/dL (0.2-1.0)
[2017-07-05] MEDS: NICOTINE 14 MG/24 HOURS TOPICAL PATCH TD SCH (10:16)
[2017-07-05] MEDS: PRENATAL VITAMINS W/ FOLIC ACID TABLET (FP) PO SCH (10:16)
[2017-07-05 10:19] LABS: CHLORIDE 104 mmol/L (98-107); SODIUM 139 mmol/L (136-145)
[2017-07-05] MEDS: diazePAM 5 MG TABLET PO PRN ×3 (10:19→19:41)
[2017-07-05 10:28] LABS: ALBUMIN 3.5 g/dl (3.4-5.0); ALK PHOS 62 U/L (45-117); ANION GAP 6 (8-16); BILIRUBIN,TOTAL 1.5 mg/dL (0.2-1.0); BLOOD UREA NITROGEN 14 mg/dL (7-18); CALCIUM 8.4 mg/dL (8.5-10.1); CO2 29 mmol/L (21-32); CREATININE 0.8 mg/dL (0.7-1.3); GLUCOSE,RANDOM 84 mg/dL (74-106); SGOT/AST 21 U/L (15-37); SGPT/ALT 23 U/L (12-78); TOT PROT 6.4 g/dl (6.4-8.2)
--- NOTE | 2017-07-05 10:41 | CONSULT ---
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 Refer to addiction counselor's note for further information Medical History: Significant for hepatitis C. Smokes 10 cigarettes daily Psychiatric History: Patient is known to advertising copywriter from a previous admission to this facility in Apr 2015. Reports that he was diagnosed with ADHD and depression at age 13 and prescribed Ritalin and Abilify. Claims that she stopped taking these medications at age 14. Reports one psychiatric hospitalization at age 15 or 16 for 3 days at [facility] beccause of truancy. Claims that he was not prescribed any medication. At present, reports feeling depressed but sleeping well Physical/Sexual Abuse/Trauma History: Denies history of sexual,physical and verbal abuse. Additional Comment: Reports history of multiple previous arrests including 3 felony convictions. Denies being on parole/probation Mental Status Exam - Mental Status Exam Alert and Oriented to: Time, Person Cognitive Function: Fair Patient Appearance: Well Groomed Mood: Depressed Affect: Appropriate Patient Behavior: Cooperative Speech Pattern: Clear Voice Loudness: Normal Thought Process: Intact, Goal Oriented Hallucinations: Denies Suicidal Ideation: Denies Homicidal Ideation: Denies Insight/Judgement: Poor Sleep: Well Appetite: Good Muscle strength/Tone: Normal Gait/Station: Normal Psychiatric Findings - Problem List ([place] 1, 2,3) (1) ADHD (attention deficit hyperactivity disorder) Current Visit: No Status: Chronic (2) Substance induced mood disorder Current Visit: Yes Status: Acute (3) Alcohol dependence with uncomplicated withdrawal Current Visit: Yes Status: Acute (4) Opioid dependence with withdrawal Current Visit: Yes Status: Acute (5) Cocaine dependence, uncomplicated Current Visit: Yes Status: Chronic (6) Sedative, hypnotic or anxiolytic dependence with withdrawal, uncomplicated Current Visit: Yes Status: Acute (7) Nicotine dependence Current Visit: Yes Status: Chronic Qualifiers: Nicotine product type: cigarettes Substance use status: in withdrawal Qualified Code(s): F17.213 - Nicotine dependence, cigarettes, with withdrawal (8) Hepatitis C Current Visit: Yes Status: Chronic - Initial Treatment Plan Initial Treatment Plan: Continue inpatient detoxification
[2017-07-05] MEDS ORDERED: FLU VACCINE QUAD 60 MCG/0.5 ML (MDV 17-18) IM ONE (12:00)
--- NOTE | 2017-07-05 14:54 | PN ---
S CIWA - CIWA Score Nausea/Vomitin Muscle Tremors: 4-Moderate,w/Arms Extend Anxiety: 3 Agitation: 3 Paroxysmal Sweats: 3 Orientation: 0-Oriented Tacttile Disturbances: 1-Very Mild Itch/Numbness Auditory Disturbances: 0-None Visual Disturbances: 0-None Headache: 1-Very Mild CIWA-Ar Total Score: 18 [facility] COWS - Scale Resting Pulse: 0= [place] 80 or Below Sweatin= Chills/Flushing Restless Observation: 3= Extraneous Movement Pupil Size: 1= Pupils >than Normal Bone or Joint Aches: 2= Severe Diffuse Aches Runny Nose/ Eye Tearin= Runny Nose/Eyes GI Upset > 30mins: 2= Nausea/Diarrhea Tremor Observation of Outstretched Hands: 2= Slight Tremor Visible Yawning Observation: 1= 1-2x During Session Anxiety or Irritability: 2=Irritable/Anxious Goose Flesh Skin: 0=Smooth Skin COWS Score: 16 S Progress Note (SOAP) Subjective: Sweating, tremor, interrupted sleep, anxious Objective: 07/05/17 14:53 Last Vital Signs Temp Pulse Resp BP Pulse Ox 97.1 F L 56 L 18 110/58 07/05/17 14:13 07/05/17 14:13 07/05/17 14:13 07/05/17 14:13 Laboratory Tests 07/04/17 07/05/17 07/05/17 08:00 06:00 06:00 WBC 4.9 RBC 5.03 Hgb 15.1 Hct 44.2 MCV 87.9 MCH 29.9 MCHC 34.0 RDW 13.0 Plt Count 180 MPV 9.0 Sodium Potassium Chloride Carbon Dioxide Anion Gap BUN Creatinine Creat Clearance w eGFR Random Glucose Calcium Total Bilirubin AST ALT Alkaline Phosphatase Total Protein Albumin Urine Color Dayanara Urine Appearance Turbid Urine pH 5.0 Ur Specific [place] 1.023 Urine Protein Negative Urine Glucose (UA) Negative Urine Ketones Negative Urine Blood Negative Urine Nitrite Negative Urine Bilirubin Negative Urine Urobilinogen Negative Ur Leukocyte Esterase Negative RPR Titer HIV 1&2 Antibody Screen Negative HIV P24 Antigen Negative 07/05/17 07/05/17 06:00 06:00 WBC RBC Hgb Hct MCV MCH MCHC RDW Plt Count MPV Sodium 139 Potassium 4.0 Chloride 104 Carbon Dioxide 29 Anion Gap 6 L BUN 14 Creatinine 0.8 Creat Clearance w eGFR > 60 Random Glucose 84 Calcium 8.4 L Total Bilirubin 1.5 H AST 21 ALT 23 Alkaline Phosphatase 62 Total Protein 6.4 Albumin 3.5 Urine Color Urine Appearance Urine pH Ur Specific [place] Urine Protein Urine Glucose (UA) Urine Ketones Urine Blood Urine Nitrite Urine Bilirubin Urine Urobilinogen Ur Leukocyte Esterase RPR Titer Nonreactive HIV 1&2 Antibody Screen HIV P24 Antigen Labs reviewed Assessment: 07/05/17 14:53 Withdrawal symptoms Plan: Continue detox Encouraged PO hydration (water)
[2017-07-05] MEDS: THIAMINE HCL 100 MG TABLET (FP) PO SCH (22:10)
[2017-07-06] MEDS: diazePAM 5 MG TABLET PO PRN (05:47)
[2017-07-06 09:12] VITALS: BP 116/70; PULSE 61; TEMP 97.2
[2017-07-06] MEDS ORDERED: METHADONE HCL 5 MG TABLET (FOR DETOX USE ONLY) PO SCH (10:00)
[2017-07-06] MEDS ORDERED: diazePAM 5 MG TABLET PO SCH (10:00)
[2017-07-06] MEDS: PRENATAL VITAMINS W/ FOLIC ACID TABLET (FP) PO SCH (10:20)
[2017-07-06] MEDS: NICOTINE 14 MG/24 HOURS TOPICAL PATCH TD SCH (10:22)
--- NOTE | 2017-07-06 11:01 | PN ---
[facility] Progress Note (SOAP) Subjective: Anxious Requesting to leave s/p "I am just not mentally ready" Worried about missing "my testerone shots" Objective: 07/06/17 10:57 A & O x 3 Gait steady Not in acute distress Vital Signs Temperature 97.2 F L 07/06/17 09:10 Pulse Rate 61 07/06/17 09:10 Respiratory Rate 18 07/06/17 09:10 Blood Pressure 116/70 07/06/17 09:10 O2 Sat by Pulse Oximetry (%) Assessment: 07/06/17 10:58 Anxiety Withdrawal sx Pt insisting on leaving despite repeated effort to encourage him to complete detox Plan: Leaving Against Medical advice
--- NOTE | 2017-07-06 11:05 | DS ---
[facility] Detox Discharge Summary Admission Date: 07/04/17 Discharge Date: 07/06/17 - History Additional Comments: Pt insisting on leaving despite repeated effort to encourage him to complete detox Worried that he will missing his bi-weekly testerone shots that he gives himself Appears anxious, A & O x 3, gait steady, no respiratory distress Pertinent Past History: Dehydration - Physical Exam Results Vital Signs: Vital Signs Temperature 97.2 F L 07/06/17 09:10 Pulse Rate 61 07/06/17 09:10 Respiratory Rate 18 07/06/17 09:10 Blood Pressure 116/70 07/06/17 09:10 O2 Sat by Pulse Oximetry (%) Pertinent Admission Physical Exam Findings: withdrawal sx - Medication Discharge Medications: Ambulatory Orders NK [No Known Home Medication] 09/17/14 - Diagnosis (1) Alcohol dependence with uncomplicated withdrawal Current Visit: Yes Status: Acute (2) Opioid dependence with withdrawal Current Visit: Yes Status: Acute (3) Dehydration Current Visit: Yes Status: Acute (4) Sedative, hypnotic or anxiolytic dependence with withdrawal, uncomplicated Current Visit: Yes Status: Acute (5) Substance induced mood disorder Current Visit: Yes Status: Acute (6) Anxiety and depression Current Visit: Yes Status: Chronic (7) Cocaine dependence, uncomplicated Current Visit: Yes Status: Chronic (8) Hepatitis C Current Visit: Yes Status: Chronic (9) Nicotine dependence Current Visit: Yes Status: Chronic Qualifiers: Nicotine product type: cigarettes Substance use status: in withdrawal Qualified Code(s): F17.213 - Nicotine dependence, cigarettes, with withdrawal - AMA Did Patient Leave Against Medical Advice: Yes
[2017-07-08] MEDS ORDERED: diazePAM 5 MG TABLET PO SCH (10:00)
[2017-07-08] MEDS ORDERED: METHADONE HCL 10 MG TABLET (FOR DETOX USE ONLY) PO SCH (10:00)
[2017-07-09] MEDS ORDERED: METHADONE HCL 5 MG TABLET (FOR DETOX USE ONLY) PO SCH (06:00)
== END 2017-07-06 11:10 | disposition left against medical advice (07) | DRG 894 ==
LOC: YASAS 16:12 → Y3N 17:48
PROVIDERS: ADMIT Internal Medicine; ATTEND Internal Medicine
PROC: HZ2ZZZZ Detoxification Services for Substance Abuse Treatment (ICD-10-PCS; principal; 2017-07-04)
DX: F11.23 Opioid dependence with withdrawal (principal); F14.20 Cocaine dependence, uncomplicated; F10.230 Alcohol dependence with withdrawal, uncomplicated; F13.230 Sedative, hypnotic or anxiolytic dependence with withdrawal, uncomplicated; F17.210 Nicotine dependence, cigarettes, uncomplicated; F41.9 Anxiety disorder, unspecified; F19.24 Other psychoactive substance dependence with psychoactive substance-induced mood disorder; E86.0 Dehydration; F90.9 Attention-deficit hyperactivity disorder, unspecified type; B18.2 Chronic viral hepatitis C
CPT/HCPCS: 36415; 80053; 81003; 85027; 86593; 87389; 90688; 93005; 93010; G0008

== ENCOUNTER 2020-04-30 18:13 | Inpatient (IN) | payer BC, OTHER ==
[2020-04-30 20:02] VITALS: BMI 24.3
[2020-04-30] MEDS ORDERED: ACETAMINOPHEN 325 MG TABLET (FP) PO PRN ×2 (22:21)
[2020-04-30] MEDS ORDERED: diazePAM 5 MG TABLET PO ONE (22:21)
[2020-04-30] MEDS ORDERED: cloNIDine HCL 0.1 MG TABLET PO PRN (22:21)
[2020-04-30] MEDS ORDERED: MAGNESIUM CITRATE 300 ML BOTTLE PO PRN (22:21)
[2020-04-30] MEDS ORDERED: IBUPROFEN 400 MG TABLET (FP) PO PRN (22:21)
[2020-04-30] MEDS ORDERED: METHADONE HCL 10 MG TABLET (FOR DETOX USE ONLY) PO ONE (22:21)
[2020-04-30] MEDS ORDERED: METHOCARBAMOL 500 MG TABLET PO PRN (22:21)
[2020-04-30] MEDS ORDERED: ONDANSETRON *ODT* 4 MG TABLET SL PRN (22:21)
[2020-04-30] MEDS ORDERED: NICOTINE POLACRILEX 2 MG GUM BUC PRN (22:21)
[2020-04-30] MEDS ORDERED: MAG HYDROX/AL HYDROX/SIMETH 30 ML UNIT-DOSE CUP PO PRN (22:21)
[2020-04-30] MEDS ORDERED: MENTHOL/PHENOL 1 EACH UD MM PRN (22:21)
[2020-04-30] MEDS ORDERED: BISMUTH SUBSALICYLATE 524 MG/30 ML UD PO PRN (22:21)
[2020-04-30] MEDS ORDERED: MAGNESIUM HYDROX 2400MG/30ML ORAL SUSPENSION 30 ML CUP PO PRN (22:21)
[2020-04-30] MEDS: diazePAM 5 MG TABLET PO SCH (23:45)
[2020-05-01] MEDS ORDERED: hydrOXYzine PAMOATE 25 MG CAPSULE (FP) PO ONE (06:34)
[2020-05-01] MEDS ORDERED: diazePAM 5 MG TABLET ONE (06:34)
[2020-05-01] MEDS: hydrOXYzine PAMOATE 25 MG CAPSULE (FP) PO SCH ×5 (06:36→22:25)
[2020-05-01] MEDS: diazePAM 5 MG TABLET PO SCH ×5 (06:36→22:25)
[2020-05-01] MEDS ORDERED: METHADONE HCL 5 MG TABLET (FOR DETOX USE ONLY) ONE (09:26)
[2020-05-01] MEDS ORDERED: METHADONE HCL 10 MG TABLET (FOR DETOX USE ONLY) ONE (09:26)
[2020-05-01] MEDS ORDERED: METHADONE (DETOX) 20 MG, METHADONE (DETOX) 5 MG PO ONE (10:00)
[2020-05-01] MEDS: NICOTINE 14 MG/24 HOURS TOPICAL PATCH TD SCH (10:16)
[2020-05-01] MEDS: PRENATAL VITAMINS W/ FOLIC ACID TABLET (FP) PO SCH (10:17)
[2020-05-01] MEDS: diazePAM 5 MG TABLET PO PRN ×2 (12:29→19:04)
[2020-05-01 13:51] LABS: HEMATOCRIT 38.6 % (35.4-49); HEMOGLOBIN 13.2 GM/dL (11.7-16.9); MCH 30.7 pg (25.7-33.7); MCHC 34.2 g/dl (32.0-35.9); MEAN CELL VOLUME 89.7 fl (80-96); MEAN PLT VOLUME 9.4 fl (7.5-11.1); PLATELET COUNT 202 K/MM3 (134-434); RDW 11.7 % (11.9-15.9); WHITE BLOOD COUNT 6.8 K/mm3 (4.0-10.0)
[2020-05-01 14:24] LABS: POTASSIUM 3.9 mmol/L (3.5-5.1)
[2020-05-01 14:45] LABS: CREATININE 0.9 mg/dL (0.55-1.3)
[2020-05-01 14:46] LABS: TOT PROT 6.8 g/dl (6.4-8.2)
[2020-05-01 14:47] LABS: ALBUMIN 3.8 g/dl (3.4-5.0)
[2020-05-01 14:51] LABS: BLOOD UREA NITROGEN 13.4 mg/dL (7-18)
[2020-05-01] MEDS: THIAMINE HCL 100 MG TABLET (FP) PO SCH (22:25)
[2020-05-01] MEDS: MELATONIN 5 MG TABLETS PO SCH (22:25)
[2020-05-02] MEDS: diazePAM 5 MG TABLET PO SCH ×3 (06:54→22:37)
[2020-05-02] MEDS: hydrOXYzine PAMOATE 25 MG CAPSULE (FP) PO SCH ×5 (06:54→22:37)
[2020-05-02] MEDS ORDERED: METHADONE HCL 10 MG TABLET (FOR DETOX USE ONLY) PO ONE (10:00)
[2020-05-02] MEDS: diazePAM 5 MG TABLET PO PRN ×2 (10:42→19:01)
[2020-05-02] MEDS: NICOTINE 14 MG/24 HOURS TOPICAL PATCH TD SCH (10:45)
[2020-05-02] MEDS: PRENATAL VITAMINS W/ FOLIC ACID TABLET (FP) PO SCH (10:45)
[2020-05-02] MEDS: THIAMINE HCL 100 MG TABLET (FP) PO SCH (22:37)
[2020-05-02] MEDS: MELATONIN 5 MG TABLETS PO SCH (22:37)
[2020-05-03] MEDS ORDERED: diazePAM 5 MG TABLET PO SCH (06:00)
[2020-05-03] MEDS: hydrOXYzine PAMOATE 25 MG CAPSULE (FP) PO SCH ×3 (06:30→14:30)
[2020-05-03] MEDS ORDERED: METHADONE HCL 10 MG TABLET (FOR DETOX USE ONLY) ONE (08:42)
[2020-05-03] MEDS ORDERED: METHADONE HCL 5 MG TABLET (FOR DETOX USE ONLY) ONE (08:42)
[2020-05-03] MEDS ORDERED: METHADONE (DETOX) 10 MG, METHADONE (DETOX) 5 MG PO ONE (10:00)
[2020-05-03] MEDS: PRENATAL VITAMINS W/ FOLIC ACID TABLET (FP) PO SCH (10:04)
[2020-05-03] MEDS: NICOTINE 14 MG/24 HOURS TOPICAL PATCH TD SCH (10:04)
[2020-05-03] MEDS: diazePAM 5 MG TABLET PO PRN (10:06)
[2020-05-03 14:14] VITALS: BP 127/74; PULSE 57; TEMP 97.7
[2020-05-04] MEDS ORDERED: diazePAM 5 MG TABLET PO ONE (06:00)
[2020-05-04] MEDS ORDERED: METHADONE HCL 10 MG TABLET (FOR DETOX USE ONLY) PO ONE (10:00)
[2020-05-05] MEDS ORDERED: METHADONE HCL 5 MG TABLET (FOR DETOX USE ONLY) PO ONE (06:00)
== END 2020-05-03 14:37 | disposition left against medical advice (07) | DRG 894 ==
LOC: YASAS 18:13 → Y6N 05-01 08:30
PROVIDERS: ADMIT Allergy & Immunology; ATTEND Allergy & Immunology
PROC: HZ2ZZZZ Detoxification Services for Substance Abuse Treatment (ICD-10-PCS; principal; 2020-05-01)
DX: F11.23 Opioid dependence with withdrawal (principal); F19.282 Other psychoactive substance dependence with psychoactive substance-induced sleep disorder; F10.230 Alcohol dependence with withdrawal, uncomplicated; F13.230 Sedative, hypnotic or anxiolytic dependence with withdrawal, uncomplicated; F14.10 Cocaine abuse, uncomplicated; F12.10 Cannabis abuse, uncomplicated; F19.24 Other psychoactive substance dependence with psychoactive substance-induced mood disorder; F17.210 Nicotine dependence, cigarettes, uncomplicated; F39 Unspecified mood [affective] disorder; F90.9 Attention-deficit hyperactivity disorder, unspecified type; B18.2 Chronic viral hepatitis C
CPT/HCPCS: 36415; 80053; 82247; 85027; 86780; C9803; U0003

== ENCOUNTER 2020-07-20 01:17 | Inpatient (IN) | payer BC, OTHER ==
[2020-07-20 01:45] VITALS: BMI 25.1
[2020-07-20] MEDS ORDERED: P-EPHED 60MG/TRIPROLIDI 2.5MG TABLET PO PRN (02:08)
[2020-07-20] MEDS ORDERED: ACETAMINOPHEN 325 MG TABLET (FP) PO PRN ×2 (02:08)
[2020-07-20] MEDS ORDERED: METHOCARBAMOL 500 MG TABLET PO PRN (02:08)
[2020-07-20] MEDS ORDERED: MAGNESIUM HYDROX 2400MG/30ML ORAL SUSPENSION 30 ML CUP PO PRN (02:08)
[2020-07-20] MEDS ORDERED: hydrOXYzine PAMOATE 25 MG CAPSULE (FP) PO PRN (02:08)
[2020-07-20] MEDS ORDERED: ONDANSETRON *ODT* 4 MG TABLET SL PRN (02:08)
[2020-07-20] MEDS ORDERED: guaiFENesin 200 MG/10 ML 10 ML UNIT-DOSE CUPS PO PRN (02:08)
[2020-07-20] MEDS ORDERED: MAG HYDROX/AL HYDROX/SIMETH 30 ML UNIT-DOSE CUP PO PRN (02:08)
[2020-07-20] MEDS ORDERED: NALOXONE (NARCAN) HCL 4 MG/0.1 ML SPRAY NS PRN (02:08)
[2020-07-20] MEDS ORDERED: MENTHOL/PHENOL 1 EACH UD MM PRN (02:08)
[2020-07-20] MEDS ORDERED: IBUPROFEN 400 MG TABLET (FP) PO PRN (02:08)
[2020-07-20] MEDS ORDERED: MAGNESIUM CITRATE 300 ML BOTTLE PO PRN (02:08)
[2020-07-20] MEDS ORDERED: NICOTINE POLACRILEX 2 MG GUM BUC PRN (02:08)
[2020-07-20] MEDS ORDERED: NALOXONE HCL 0.4 MG/ML VIAL IM PRN (02:08)
[2020-07-20] MEDS ORDERED: BISMUTH SUBSALICYLATE 524 MG/30 ML UD PO PRN (02:08)
[2020-07-20] MEDS ORDERED: DICYCLOMINE HCL 10 MG CAPSULE PO PRN (02:08)
[2020-07-20] MEDS ORDERED: cloNIDine HCL 0.1 MG TABLET PO PRN (06:39)
[2020-07-20] MEDS ORDERED: METHADONE HCL 10 MG TABLET (FOR DETOX USE ONLY) PO ONE (06:39)
[2020-07-20] MEDS ORDERED: METHADONE HCL 10 MG TABLET (FOR DETOX USE ONLY) ONE (06:51)
[2020-07-20 10:26] LABS: HEMATOCRIT 39.9 % (35.4-49); HEMOGLOBIN 14.1 GM/dL (11.7-16.9); MCH 31.1 pg (25.7-33.7); MCHC 35.4 g/dl (32.0-35.9); MEAN CELL VOLUME 87.9 fl (80-96); MEAN PLT VOLUME 8.6 fl (7.5-11.1); PLATELET COUNT 189 K/MM3 (134-434); RBC 4.54 M/mm3 (4.00-5.60); RDW 14.4 % (11.9-15.9); WHITE BLOOD COUNT 4.7 K/mm3 (4.0-10.0)
[2020-07-20] MEDS: diazePAM 5 MG TABLET PO SCH ×3 (10:35→22:57)
[2020-07-20] MEDS: PRENATAL VITAMINS W/ FOLIC ACID TABLET (FP) PO SCH (10:36)
[2020-07-20] MEDS: NICOTINE 21 MG/24 HOURS TOPICAL PATCH TD SCH (10:37)
[2020-07-20 10:38] LABS: CALCIUM 8.9 mg/dL (8.5-10.1)
[2020-07-20 10:39] LABS: ALBUMIN 3.7 g/dl (3.4-5.0)
[2020-07-20 10:42] LABS: CREATININE 0.9 mg/dL (0.55-1.3)
[2020-07-20 10:44] LABS: BILIRUBIN,TOTAL 1.2 mg/dL (0.2-1); TOT PROT 7.1 g/dl (6.4-8.2)
[2020-07-20] MEDS: diazePAM 5 MG TABLET PO PRN ×2 (14:44→21:12)
[2020-07-20] MEDS ORDERED: QUEtiapine FUMARATE 50 MG TABLET PO PRN (22:00)
[2020-07-20] MEDS ORDERED: SUVOREXANT 10 MG TABLET PO PRN (22:00)
[2020-07-20] MEDS ORDERED: MELATONIN 5 MG TABLETS PO PRN (22:00)
[2020-07-20] MEDS ORDERED: MELATONIN 5 MG TABLETS PO SCH (22:00)
[2020-07-20] MEDS ORDERED: THIAMINE HCL 100 MG TABLET (FP) PO SCH (22:00)
[2020-07-21] MEDS: diazePAM 5 MG TABLET PO SCH ×2 (05:24→10:05)
[2020-07-21] MEDS ORDERED: METHADONE HCL 5 MG TABLET (FOR DETOX USE ONLY) ONE (09:32)
[2020-07-21] MEDS ORDERED: METHADONE HCL 10 MG TABLET (FOR DETOX USE ONLY) ONE (09:33)
[2020-07-21] MEDS ORDERED: METHADONE (DETOX) 20 MG, METHADONE (DETOX) 5 MG PO ONE (10:00)
[2020-07-21] MEDS: PRENATAL VITAMINS W/ FOLIC ACID TABLET (FP) PO SCH (10:06)
[2020-07-21] MEDS: NICOTINE 21 MG/24 HOURS TOPICAL PATCH TD SCH (10:06)
[2020-07-21] MEDS: diazePAM 5 MG TABLET PO PRN (13:02)
[2020-07-21 13:16] VITALS: BP 125/90; PULSE 53; TEMP 97.7
[2020-07-22] MEDS ORDERED: diazePAM 5 MG TABLET PO SCH (06:00)
[2020-07-22] MEDS ORDERED: METHADONE HCL 10 MG TABLET (FOR DETOX USE ONLY) PO ONE (10:00)
[2020-07-23] MEDS ORDERED: diazePAM 5 MG TABLET PO SCH (06:00)
[2020-07-23] MEDS ORDERED: METHADONE (DETOX) 10 MG, METHADONE (DETOX) 5 MG PO ONE (10:00)
[2020-07-24] MEDS ORDERED: diazePAM 5 MG TABLET PO ONE (06:00)
[2020-07-24] MEDS ORDERED: METHADONE HCL 10 MG TABLET (FOR DETOX USE ONLY) PO ONE (10:00)
[2020-07-25] MEDS ORDERED: METHADONE HCL 5 MG TABLET (FOR DETOX USE ONLY) PO ONE (06:00)
== END 2020-07-21 16:11 | disposition left against medical advice (07) | DRG 770 ==
LOC: YASAS 01:17 → Y6N 09:32
PROVIDERS: ADMIT Allergy & Immunology; ATTEND Allergy & Immunology
PROC: HZ2ZZZZ Detoxification Services for Substance Abuse Treatment (ICD-10-PCS; principal; 2020-07-20)
DX: F10.230 Alcohol dependence with withdrawal, uncomplicated (principal); F11.23 Opioid dependence with withdrawal; F13.230 Sedative, hypnotic or anxiolytic dependence with withdrawal, uncomplicated; F14.20 Cocaine dependence, uncomplicated; F12.20 Cannabis dependence, uncomplicated; F17.210 Nicotine dependence, cigarettes, uncomplicated; F19.282 Other psychoactive substance dependence with psychoactive substance-induced sleep disorder; F19.24 Other psychoactive substance dependence with psychoactive substance-induced mood disorder; E86.0 Dehydration; M10.9 Gout, unspecified; Z86.59 Personal history of other mental and behavioral disorders
CPT/HCPCS: 36415; 80053; 85027; 86780; C9803; U0003; U0005

== ENCOUNTER 2020-08-11 16:38 | Inpatient (IN) | payer OTHER ==
[2020-08-11 20:19] VITALS: BMI 25.0
[2020-08-11] MEDS ORDERED: MAGNESIUM CITRATE 300 ML BOTTLE PO PRN (21:55)
[2020-08-11] MEDS ORDERED: ONDANSETRON *ODT* 4 MG TABLET SL PRN (21:55)
[2020-08-11] MEDS ORDERED: P-EPHED 60MG/TRIPROLIDI 2.5MG TABLET PO PRN (21:55)
[2020-08-11] MEDS ORDERED: MENTHOL/PHENOL 1 EACH UD MM PRN (21:55)
[2020-08-11] MEDS ORDERED: MAG HYDROX/AL HYDROX/SIMETH 30 ML UNIT-DOSE CUP PO PRN (21:55)
[2020-08-11] MEDS ORDERED: NALOXONE (NARCAN) HCL 4 MG/0.1 ML SPRAY NS PRN (21:55)
[2020-08-11] MEDS ORDERED: BISMUTH SUBSALICYLATE 524 MG/30 ML PO PRN (21:55)
[2020-08-11] MEDS ORDERED: ACETAMINOPHEN 325 MG TABLET (FP) PO PRN ×2 (21:55)
[2020-08-11] MEDS ORDERED: cloNIDine HCL 0.1 MG TABLET PO PRN (21:55)
[2020-08-11] MEDS ORDERED: NICOTINE POLACRILEX 2 MG GUM BUC PRN (21:55)
[2020-08-11] MEDS ORDERED: DICYCLOMINE HCL 10 MG CAPSULE PO PRN (21:55)
[2020-08-11] MEDS ORDERED: NALOXONE HCL 0.4 MG/ML VIAL IM PRN (21:55)
[2020-08-11] MEDS ORDERED: IBUPROFEN 400 MG TABLET (FP) PO PRN (21:55)
[2020-08-11] MEDS ORDERED: guaiFENesin 200 MG/10 ML 10 ML UNIT-DOSE CUPS PO PRN (21:55)
[2020-08-11] MEDS ORDERED: MAGNESIUM HYDROX 2400MG/30ML ORAL SUSPENSION 30 ML CUP PO PRN (21:55)
[2020-08-11] MEDS ORDERED: MELATONIN 5 MG TABLETS PO SCH (22:00)
[2020-08-11] MEDS ORDERED: METHADONE HCL 10 MG TABLET (FOR DETOX USE ONLY) PO ONE (22:15)
[2020-08-11] MEDS: THIAMINE HCL 100 MG TABLET (FP) PO SCH (22:54)
[2020-08-11] MEDS: diazePAM 5 MG TABLET PO SCH (22:59)
[2020-08-12] MEDS: diazePAM 5 MG TABLET PO SCH ×4 (06:38→22:32)
[2020-08-12] MEDS ORDERED: METHADONE HCL 10 MG TABLET (FOR DETOX USE ONLY) ONE (09:20)
[2020-08-12] MEDS ORDERED: METHADONE HCL 5 MG TABLET (FOR DETOX USE ONLY) ONE (09:20)
[2020-08-12] MEDS ORDERED: METHADONE (DETOX) 20 MG, METHADONE (DETOX) 5 MG PO ONE (10:00)
[2020-08-12] MEDS: NICOTINE 14 MG/24 HOURS TOPICAL PATCH TD SCH (10:26)
[2020-08-12] MEDS: PRENATAL VITAMINS W/ FOLIC ACID TABLET (FP) PO SCH (10:26)
[2020-08-12 11:05] LABS: HEMATOCRIT 40.3 % (35.4-49); HEMOGLOBIN 14.2 GM/dL (11.7-16.9); MCH 31.4 pg (25.7-33.7); MCHC 35.3 g/dl (32.0-35.9); MEAN PLT VOLUME 8.7 fl (7.5-11.1); PLATELET COUNT 242 K/MM3 (134-434); RBC 4.53 M/mm3 (4.00-5.60); RDW 12.6 % (11.9-15.9); WHITE BLOOD COUNT 5.8 K/mm3 (4.0-10.0)
[2020-08-12 11:13] LABS: ALBUMIN 3.8 g/dl (3.4-5.0); BLOOD UREA NITROGEN 11.7 mg/dL (7-18); CALCIUM 8.9 mg/dL (8.5-10.1)
[2020-08-12 11:16] LABS: CREATININE 0.8 mg/dL (0.55-1.3)
[2020-08-12 11:18] LABS: BILIRUBIN,TOTAL 1.5 mg/dL (0.2-1); TOT PROT 7.3 g/dl (6.4-8.2)
[2020-08-12] MEDS: diazePAM 5 MG TABLET PO PRN ×2 (13:29→20:14)
[2020-08-12] MEDS: MELATONIN 5 MG TABLETS PO PRN (22:31)
[2020-08-12] MEDS: THIAMINE HCL 100 MG TABLET (FP) PO SCH (22:32)
[2020-08-13] MEDS: diazePAM 5 MG TABLET PO PRN ×4 (02:20→20:52)
[2020-08-13] MEDS: diazePAM 5 MG TABLET PO SCH ×3 (06:55→22:22)
[2020-08-13] MEDS ORDERED: METHADONE HCL 10 MG TABLET (FOR DETOX USE ONLY) PO ONE (10:00)
[2020-08-13] MEDS: NICOTINE 14 MG/24 HOURS TOPICAL PATCH TD SCH (10:44)
[2020-08-13] MEDS: PRENATAL VITAMINS W/ FOLIC ACID TABLET (FP) PO SCH (10:44)
[2020-08-13] MEDS: MELATONIN 5 MG TABLETS PO PRN (20:54)
[2020-08-13] MEDS: METHOCARBAMOL 500 MG TABLET PO PRN (20:54)
[2020-08-13] MEDS: THIAMINE HCL 100 MG TABLET (FP) PO SCH (22:00)
[2020-08-14] MEDS: diazePAM 5 MG TABLET PO PRN ×2 (02:18→09:17)
[2020-08-14] MEDS ORDERED: diazePAM 5 MG TABLET PO SCH (06:00)
[2020-08-14] MEDS ORDERED: METHADONE HCL 10 MG TABLET (FOR DETOX USE ONLY) ONE (08:28)
[2020-08-14] MEDS ORDERED: METHADONE HCL 5 MG TABLET (FOR DETOX USE ONLY) ONE (08:29)
[2020-08-14 09:01] VITALS: BP 118/71; PULSE 74; TEMP 98.3
[2020-08-14] MEDS: METHOCARBAMOL 500 MG TABLET PO PRN (09:16)
[2020-08-14] MEDS: PRENATAL VITAMINS W/ FOLIC ACID TABLET (FP) PO SCH (09:16)
[2020-08-14] MEDS: NICOTINE 14 MG/24 HOURS TOPICAL PATCH TD SCH (09:19)
[2020-08-14] MEDS ORDERED: METHADONE (DETOX) 10 MG, METHADONE (DETOX) 5 MG PO ONE (10:00)
[2020-08-14 11:36] LABS: CALCIUM 9.5 mg/dL (8.5-10.1)
[2020-08-14 11:37] LABS: ALBUMIN 3.7 g/dl (3.4-5.0); BLOOD UREA NITROGEN 10.8 mg/dL (7-18)
[2020-08-14 11:40] LABS: CREATININE 0.8 mg/dL (0.55-1.3); INR 1.03 (0.83-1.09); PROTHROMBIN TIME (PATIENT) 12.6 SEC (9.7-13.0)
[2020-08-14 11:42] LABS: BILIRUBIN,TOTAL 1.8 mg/dL (0.2-1); TOT PROT 7.2 g/dl (6.4-8.2)
[2020-08-15] MEDS ORDERED: diazePAM 5 MG TABLET PO ONE (06:00)
[2020-08-15 06:09] LABS: SARS-CoV-2 NAA Not Detected (Not Detected)
[2020-08-15] MEDS ORDERED: METHADONE HCL 10 MG TABLET (FOR DETOX USE ONLY) PO ONE (10:00)
[2020-08-16] MEDS ORDERED: METHADONE HCL 5 MG TABLET (FOR DETOX USE ONLY) PO ONE (06:00)
== END 2020-08-14 12:21 | disposition left against medical advice (07) | DRG 770 ==
LOC: YASAS 16:38 → Y6N 21:45 → Y3N 22:10
PROVIDERS: ADMIT Allergy & Immunology; ATTEND Allergy & Immunology
PROC: HZ2ZZZZ Detoxification Services for Substance Abuse Treatment (ICD-10-PCS; principal; 2020-08-11)
DX: F11.23 Opioid dependence with withdrawal (principal); F10.230 Alcohol dependence with withdrawal, uncomplicated; F14.20 Cocaine dependence, uncomplicated; F12.20 Cannabis dependence, uncomplicated; F17.210 Nicotine dependence, cigarettes, uncomplicated; F19.282 Other psychoactive substance dependence with psychoactive substance-induced sleep disorder; F19.280 Other psychoactive substance dependence with psychoactive substance-induced anxiety disorder; F19.24 Other psychoactive substance dependence with psychoactive substance-induced mood disorder; F90.9 Attention-deficit hyperactivity disorder, unspecified type; R94.5 Abnormal results of liver function studies; Z62.810 Personal history of physical and sexual abuse in childhood; Z87.440 Personal history of urinary (tract) infections
CPT/HCPCS: 36415; 80053; 85027; 85610; 86780; C9803; U0003; U0005

== ENCOUNTER 2020-12-20 21:37 | Inpatient (IN) | payer OTHER, BC ==
[2020-12-20 22:04] VITALS: BMI 24.8
[2020-12-20] MEDS ORDERED: BISMUTH SUBSALICYLATE 524 MG/30 ML PO PRN (22:48)
[2020-12-20] MEDS ORDERED: MAG HYDROX/AL HYDROX/SIMETH 30 ML UNIT-DOSE CUP PO PRN (22:48)
[2020-12-20] MEDS ORDERED: MAGNESIUM HYDROX 2400MG/30ML ORAL SUSPENSION 30 ML CUP PO PRN (22:48)
[2020-12-20] MEDS ORDERED: ONDANSETRON *ODT* 4 MG TABLET SL PRN (22:48)
[2020-12-20] MEDS ORDERED: IBUPROFEN 400 MG TABLET (FP) PO PRN (22:48)
[2020-12-20] MEDS ORDERED: ACETAMINOPHEN 325 MG TABLET (FP) PO PRN ×2 (22:48)
[2020-12-20] MEDS ORDERED: hydrOXYzine PAMOATE 25 MG CAPSULE (FP) PO PRN (22:48)
[2020-12-20] MEDS ORDERED: P-EPHED 60MG/TRIPROLIDI 2.5MG TABLET PO PRN (22:48)
[2020-12-20] MEDS ORDERED: guaiFENesin 200 MG/10 ML 10 ML UNIT-DOSE CUPS PO PRN (22:48)
[2020-12-20] MEDS ORDERED: NALOXONE (NARCAN) HCL 4 MG/0.1 ML SPRAY NS PRN (22:48)
[2020-12-20] MEDS ORDERED: MAGNESIUM CITRATE 300 ML BOTTLE PO PRN (22:48)
[2020-12-20] MEDS ORDERED: METHOCARBAMOL 500 MG TABLET PO PRN (22:48)
[2020-12-20] MEDS ORDERED: DICYCLOMINE HCL 10 MG CAPSULE PO PRN (22:48)
[2020-12-20] MEDS ORDERED: MENTHOL/PHENOL 1 EACH UD MM PRN (22:48)
[2020-12-20] MEDS ORDERED: NICOTINE 10 MG CARTRIDGE (INHALER) IH PRN (22:48)
[2020-12-20] MEDS ORDERED: NALOXONE HCL 0.4 MG/ML VIAL IM PRN (22:48)
[2020-12-21] MEDS ORDERED: PRENATAL VITAMINS W/ FOLIC ACID TABLET (FP) PO SCH (10:00)
[2020-12-21] MEDS ORDERED: NICOTINE 14 MG/24 HOURS TOPICAL PATCH TD SCH (10:00)
[2020-12-21] MEDS ORDERED: clonazePAM 0.5 MG ODT TABLETS SL PRN (10:29)
[2020-12-21] MEDS ORDERED: cloNIDine HCL 0.1 MG TABLET PO PRN (10:29)
[2020-12-21 10:36] LABS: HEMATOCRIT 43.8 % (35.4-49); HEMOGLOBIN 15.5 GM/dL (11.7-16.9); MCH 31.9 pg (25.7-33.7); MCHC 35.5 g/dl (32.0-35.9); MEAN CELL VOLUME 89.8 fl (80-96); MEAN PLT VOLUME 8.9 fl (7.5-11.1); PLATELET COUNT 159 10^3/uL (134-434); RBC 4.88 M/mm3 (4.00-5.60); RDW 12.6 % (11.9-15.9)
[2020-12-21] MEDS ORDERED: methaDONE HCL 10 MG TABLET (FOR DETOX USE ONLY) ONE (10:42)
[2020-12-21 10:45] LABS: ALBUMIN 3.9 g/dl (3.4-5.0); BLOOD UREA NITROGEN 16.2 mg/dL (7-18); CALCIUM 9.3 mg/dL (8.5-10.1)
[2020-12-21] MEDS ORDERED: methaDONE HCL 10 MG TABLET (FOR DETOX USE ONLY) PO ONE (10:45)
[2020-12-21 10:48] LABS: CREATININE 0.8 mg/dL (0.55-1.3)
[2020-12-21 10:49] LABS: BILIRUBIN,TOTAL 3.5 mg/dL (0.2-1); TOT PROT 7.9 g/dl (6.4-8.2)
[2020-12-21 12:55] VITALS: BP 120/72; PULSE 64; TEMP 98.1
[2020-12-21] MEDS ORDERED: THIAMINE HCL 100 MG TABLET (FP) PO SCH (22:00)
[2020-12-21] MEDS ORDERED: MELATONIN 5 MG TABLETS PO SCH (22:00)
[2020-12-23] MEDS ORDERED: methaDONE HCL 10 MG TABLET (FOR DETOX USE ONLY) PO ONE (10:00)
[2020-12-25] MEDS ORDERED: methaDONE HCL 10 MG TABLET (FOR DETOX USE ONLY) PO ONE (10:00)
== END 2020-12-21 14:25 | disposition left against medical advice (07) | DRG 770 ==
LOC: YASAS 21:37 → Y3N 12-21 10:54
PROVIDERS: ADMIT Allergy & Immunology; ATTEND Allergy & Immunology
PROC: HZ2ZZZZ Detoxification Services for Substance Abuse Treatment (ICD-10-PCS; principal; 2020-12-21)
DX: F11.23 Opioid dependence with withdrawal (principal); F10.230 Alcohol dependence with withdrawal, uncomplicated; F14.20 Cocaine dependence, uncomplicated; F12.20 Cannabis dependence, uncomplicated; F17.210 Nicotine dependence, cigarettes, uncomplicated; F19.280 Other psychoactive substance dependence with psychoactive substance-induced anxiety disorder; F19.282 Other psychoactive substance dependence with psychoactive substance-induced sleep disorder; F19.24 Other psychoactive substance dependence with psychoactive substance-induced mood disorder; F90.9 Attention-deficit hyperactivity disorder, unspecified type; B18.2 Chronic viral hepatitis C; Z86.59 Personal history of other mental and behavioral disorders; Z87.39 Personal history of other diseases of the musculoskeletal system and connective tissue; Z59.00 Homelessness unspecified
CPT/HCPCS: 36415; 80053; 85027; 86780; C9803; U0003; U0005

== ENCOUNTER 2021-02-11 18:19 | Inpatient (IN) | payer OTHER ==
[2021-02-11 18:58] VITALS: BMI 26.4
[2021-02-11] MEDS ORDERED: METHOCARBAMOL 500 MG TABLET PO PRN (19:34)
[2021-02-11] MEDS ORDERED: ACETAMINOPHEN 325 MG TABLET (FP) PO PRN ×2 (19:34)
[2021-02-11] MEDS ORDERED: MAG HYDROX/AL HYDROX/SIMETH 30 ML UNIT-DOSE CUP PO PRN (19:34)
[2021-02-11] MEDS ORDERED: MAGNESIUM HYDROX 2400MG/30ML ORAL SUSPENSION 30 ML CUP PO PRN (19:34)
[2021-02-11] MEDS ORDERED: ONDANSETRON *ODT* 4 MG TABLET SL PRN (19:34)
[2021-02-11] MEDS ORDERED: BISMUTH SUBSALICYLATE 524 MG/30 ML PO PRN (19:34)
[2021-02-11] MEDS ORDERED: IBUPROFEN 400 MG TABLET (FP) PO PRN (19:34)
[2021-02-11] MEDS ORDERED: NICOTINE 10 MG CARTRIDGE (INHALER) IH PRN (19:34)
[2021-02-11] MEDS ORDERED: MAGNESIUM CITRATE 300 ML BOTTLE PO PRN (19:34)
[2021-02-11] MEDS ORDERED: MENTHOL/PHENOL 1 EACH UD MM PRN (19:34)
[2021-02-11] MEDS ORDERED: methaDONE HCL 10 MG TABLET (FOR DETOX USE ONLY) PO ONE (19:42)
[2021-02-11] MEDS ORDERED: cloNIDine HCL 0.1 MG TABLET PO PRN (19:42)
[2021-02-11] MEDS: THIAMINE HCL 100 MG TABLET (FP) PO SCH (23:17)
[2021-02-11] MEDS: PRENATAL VITAMINS W/ FOLIC ACID TABLET (FP) PO SCH (23:17)
[2021-02-11] MEDS: hydrOXYzine PAMOATE 25 MG CAPSULE (FP) PO SCH (23:18)
[2021-02-11] MEDS: MELATONIN 5 MG TABLETS PO SCH (23:20)
[2021-02-12] MEDS: hydrOXYzine PAMOATE 25 MG CAPSULE (FP) PO SCH ×5 (06:07→22:41)
[2021-02-12] MEDS ORDERED: methaDONE HCL 10 MG TABLET (FOR DETOX USE ONLY) ONE (09:36)
[2021-02-12] MEDS: PRENATAL VITAMINS W/ FOLIC ACID TABLET (FP) PO SCH (10:30)
[2021-02-12] MEDS: diazePAM 5 MG TABLET PO PRN ×2 (13:06→21:18)
[2021-02-12 13:59] LABS: HEMATOCRIT 34.2 % (35.4-49); HEMOGLOBIN 11.9 GM/dL (11.7-16.9); MCH 30.9 pg (25.7-33.7); MCHC 34.9 g/dl (32.0-35.9); MEAN CELL VOLUME 88.4 fl (80-96); MEAN PLT VOLUME 8.7 fl (7.5-11.1); PLATELET COUNT 182 10^3/uL (134-434); RBC 3.86 M/mm3 (4.00-5.60); RDW 12.2 % (11.9-15.9); WHITE BLOOD COUNT 4.5 K/mm3 (4.0-10.0)
[2021-02-12 14:17] LABS: CALCIUM 8.3 mg/dL (8.5-10.1)
[2021-02-12 14:18] LABS: ALBUMIN 3.1 g/dl (3.4-5.0); BLOOD UREA NITROGEN 13.5 mg/dL (7-18)
[2021-02-12 14:21] LABS: CREATININE 0.7 mg/dL (0.55-1.3)
[2021-02-12 14:22] LABS: BILIRUBIN,TOTAL 1.1 mg/dL (0.2-1)
[2021-02-12] MEDS: diazePAM 5 MG TABLET PO SCH ×2 (17:23→22:41)
[2021-02-12] MEDS: MELATONIN 5 MG TABLETS PO SCH (22:41)
[2021-02-12] MEDS: THIAMINE HCL 100 MG TABLET (FP) PO SCH (22:41)
[2021-02-13] MEDS: diazePAM 5 MG TABLET PO SCH ×4 (06:02→23:00)
[2021-02-13] MEDS: hydrOXYzine PAMOATE 25 MG CAPSULE (FP) PO SCH ×5 (06:02→23:00)
[2021-02-13] MEDS ORDERED: methaDONE HCL 10 MG TABLET (FOR DETOX USE ONLY) PO ONE (10:00)
[2021-02-13] MEDS: PRENATAL VITAMINS W/ FOLIC ACID TABLET (FP) PO SCH (10:34)
[2021-02-13] MEDS: diazePAM 5 MG TABLET PO PRN ×2 (12:18→19:15)
[2021-02-13] MEDS: THIAMINE HCL 100 MG TABLET (FP) PO SCH (23:00)
[2021-02-13] MEDS: MELATONIN 5 MG TABLETS PO SCH (23:03)
[2021-02-14] MEDS: diazePAM 5 MG TABLET PO PRN ×4 (02:17→17:42)
[2021-02-14] MEDS: diazePAM 5 MG TABLET PO SCH ×3 (05:28→22:26)
[2021-02-14] MEDS: hydrOXYzine PAMOATE 25 MG CAPSULE (FP) PO SCH ×5 (05:28→22:26)
[2021-02-14] MEDS ORDERED: methaDONE HCL 10 MG TABLET (FOR DETOX USE ONLY) ONE (09:04)
[2021-02-14] MEDS: PRENATAL VITAMINS W/ FOLIC ACID TABLET (FP) PO SCH (10:23)
[2021-02-14] MEDS: MELATONIN 5 MG TABLETS PO SCH (22:26)
[2021-02-14] MEDS: THIAMINE HCL 100 MG TABLET (FP) PO SCH (22:26)
[2021-02-15] MEDS: diazePAM 5 MG TABLET PO SCH ×2 (05:18→17:38)
[2021-02-15] MEDS: hydrOXYzine PAMOATE 25 MG CAPSULE (FP) PO SCH ×5 (05:19→22:32)
[2021-02-15] MEDS: diazePAM 5 MG TABLET PO PRN ×2 (07:36→11:45)
[2021-02-15] MEDS ORDERED: methaDONE HCL 10 MG TABLET (FOR DETOX USE ONLY) PO ONE (10:00)
[2021-02-15] MEDS: PRENATAL VITAMINS W/ FOLIC ACID TABLET (FP) PO SCH (10:38)
[2021-02-15] MEDS: THIAMINE HCL 100 MG TABLET (FP) PO SCH (22:32)
[2021-02-15] MEDS: MELATONIN 5 MG TABLETS PO SCH (22:32)
[2021-02-16] MEDS ORDERED: diazePAM 5 MG TABLET PO ONE (06:00)
[2021-02-16] MEDS: hydrOXYzine PAMOATE 25 MG CAPSULE (FP) PO SCH ×2 (06:29→09:48)
[2021-02-16] MEDS: PRENATAL VITAMINS W/ FOLIC ACID TABLET (FP) PO SCH (09:48)
[2021-02-16 10:09] VITALS: BP 124/71; PULSE 78; TEMP 98.2
== END 2021-02-16 09:47 | disposition home or self-care (01) | DRG 773 ==
LOC: YASAS 18:19 → Y3N 19:22
PROVIDERS: ADMIT Allergy & Immunology; ATTEND Allergy & Immunology
PROC: HZ2ZZZZ Detoxification Services for Substance Abuse Treatment (ICD-10-PCS; principal; 2021-02-11)
DX: F11.23 Opioid dependence with withdrawal (principal); F10.230 Alcohol dependence with withdrawal, uncomplicated; F14.10 Cocaine abuse, uncomplicated; F12.20 Cannabis dependence, uncomplicated; F19.24 Other psychoactive substance dependence with psychoactive substance-induced mood disorder; F90.9 Attention-deficit hyperactivity disorder, unspecified type; G47.00 Insomnia, unspecified; Z87.891 Personal history of nicotine dependence; Z86.69 Personal history of other diseases of the nervous system and sense organs; Z56.0 Unemployment, unspecified; Z59.00 Homelessness unspecified
CPT/HCPCS: 36415; 80053; 85027; 86780; C9803; U0003; U0005

== ENCOUNTER 2021-02-18 12:12 | Inpatient (IN) | payer OTHER ==
[2021-02-18 14:40] VITALS: BMI 25.9
[2021-02-18] MEDS ORDERED: MAG HYDROX/AL HYDROX/SIMETH 30 ML UNIT-DOSE CUP PO PRN (15:11)
[2021-02-18] MEDS ORDERED: ACETAMINOPHEN 325 MG TABLET (FP) PO PRN ×2 (15:11)
[2021-02-18] MEDS ORDERED: MAGNESIUM HYDROX 2400MG/30ML ORAL SUSPENSION 30 ML CUP PO PRN (15:11)
[2021-02-18] MEDS ORDERED: ONDANSETRON *ODT* 4 MG TABLET SL PRN (15:11)
[2021-02-18] MEDS ORDERED: BISMUTH SUBSALICYLATE 524 MG/30 ML PO PRN (15:11)
[2021-02-18] MEDS ORDERED: NICOTINE 10 MG CARTRIDGE (INHALER) IH PRN (15:11)
[2021-02-18] MEDS ORDERED: MENTHOL/PHENOL 1 EACH UD MM PRN (15:11)
[2021-02-18] MEDS ORDERED: MAGNESIUM CITRATE 300 ML BOTTLE PO PRN (15:11)
[2021-02-18] MEDS ORDERED: IBUPROFEN 400 MG TABLET (FP) PO PRN (15:11)
[2021-02-18] MEDS ORDERED: cloNIDine HCL 0.1 MG TABLET PO PRN (15:14)
[2021-02-18] MEDS ORDERED: methaDONE HCL 10 MG TABLET (FOR DETOX USE ONLY) PO ONE (15:14)
[2021-02-18] MEDS: PRENATAL VITAMINS W/ FOLIC ACID TABLET (FP) PO SCH (18:00)
[2021-02-18] MEDS: hydrOXYzine PAMOATE 25 MG CAPSULE (FP) PO SCH ×2 (18:00→22:31)
[2021-02-18] MEDS: diazePAM 5 MG TABLET PO SCH ×2 (18:07→22:31)
[2021-02-18] MEDS: diazePAM 5 MG TABLET PO PRN (20:12)
[2021-02-18] MEDS: MELATONIN 5 MG TABLETS PO SCH (22:31)
[2021-02-18] MEDS: THIAMINE HCL 100 MG TABLET (FP) PO SCH (22:31)
[2021-02-19] MEDS: diazePAM 5 MG TABLET PO SCH ×4 (06:15→22:09)
[2021-02-19] MEDS: hydrOXYzine PAMOATE 25 MG CAPSULE (FP) PO SCH ×5 (06:15→22:09)
[2021-02-19] MEDS ORDERED: methaDONE HCL 10 MG TABLET (FOR DETOX USE ONLY) ONE ×2 (09:23→11:54)
[2021-02-19] MEDS: PRENATAL VITAMINS W/ FOLIC ACID TABLET (FP) PO SCH (12:11)
[2021-02-19] MEDS: diazePAM 5 MG TABLET PO PRN ×2 (14:10→19:53)
[2021-02-19] MEDS: MELATONIN 5 MG TABLETS PO SCH (22:09)
[2021-02-19] MEDS: THIAMINE HCL 100 MG TABLET (FP) PO SCH (22:09)
[2021-02-20] MEDS: diazePAM 5 MG TABLET PO SCH ×3 (05:21→22:05)
[2021-02-20] MEDS: hydrOXYzine PAMOATE 25 MG CAPSULE (FP) PO SCH ×5 (05:21→22:05)
[2021-02-20] MEDS ORDERED: methaDONE HCL 10 MG TABLET (FOR DETOX USE ONLY) PO ONE (10:00)
[2021-02-20] MEDS: METHOCARBAMOL 500 MG TABLET PO PRN (10:04)
[2021-02-20] MEDS: diazePAM 5 MG TABLET PO PRN ×2 (10:04→17:25)
[2021-02-20] MEDS: PRENATAL VITAMINS W/ FOLIC ACID TABLET (FP) PO SCH (10:05)
[2021-02-20] MEDS: THIAMINE HCL 100 MG TABLET (FP) PO SCH (22:05)
[2021-02-20] MEDS: MELATONIN 5 MG TABLETS PO SCH (22:05)
[2021-02-21] MEDS: hydrOXYzine PAMOATE 25 MG CAPSULE (FP) PO SCH ×5 (05:48→23:18)
[2021-02-21] MEDS: diazePAM 5 MG TABLET PO SCH ×2 (05:48→17:27)
[2021-02-21] MEDS ORDERED: methaDONE HCL 10 MG TABLET (FOR DETOX USE ONLY) ONE (09:14)
[2021-02-21] MEDS: diazePAM 5 MG TABLET PO PRN ×2 (09:46→14:10)
[2021-02-21] MEDS: METHOCARBAMOL 500 MG TABLET PO PRN (09:46)
[2021-02-21] MEDS: PRENATAL VITAMINS W/ FOLIC ACID TABLET (FP) PO SCH (09:47)
[2021-02-21] MEDS: MELATONIN 5 MG TABLETS PO SCH (23:17)
[2021-02-21] MEDS: THIAMINE HCL 100 MG TABLET (FP) PO SCH (23:18)
[2021-02-22] MEDS ORDERED: diazePAM 5 MG TABLET PO ONE (06:00)
[2021-02-22] MEDS: hydrOXYzine PAMOATE 25 MG CAPSULE (FP) PO SCH ×5 (06:40→22:18)
[2021-02-22] MEDS: METHOCARBAMOL 500 MG TABLET PO PRN (09:49)
[2021-02-22] MEDS: PRENATAL VITAMINS W/ FOLIC ACID TABLET (FP) PO SCH (09:50)
[2021-02-22] MEDS ORDERED: methaDONE HCL 10 MG TABLET (FOR DETOX USE ONLY) PO ONE (10:00)
[2021-02-22] MEDS: THIAMINE HCL 100 MG TABLET (FP) PO SCH (22:18)
[2021-02-22] MEDS: MELATONIN 5 MG TABLETS PO SCH (22:18)
[2021-02-23] MEDS: hydrOXYzine PAMOATE 25 MG CAPSULE (FP) PO SCH (06:22)
[2021-02-23 08:54] VITALS: BP 130/79; PULSE 66; TEMP 98.7
== END 2021-02-23 09:01 | disposition home or self-care (01) | DRG 773 ==
LOC: YASAS 12:12 → Y3N 16:36
PROVIDERS: ADMIT Allergy & Immunology; ATTEND Allergy & Immunology
PROC: HZ2ZZZZ Detoxification Services for Substance Abuse Treatment (ICD-10-PCS; principal; 2021-02-18)
DX: F11.23 Opioid dependence with withdrawal (principal); F10.230 Alcohol dependence with withdrawal, uncomplicated; F13.230 Sedative, hypnotic or anxiolytic dependence with withdrawal, uncomplicated; F12.10 Cannabis abuse, uncomplicated; F19.24 Other psychoactive substance dependence with psychoactive substance-induced mood disorder; Z86.69 Personal history of other diseases of the nervous system and sense organs
CPT/HCPCS: 93005; 93010; C9803; U0003; U0005

== ENCOUNTER 2022-10-25 23:42 | Inpatient (IN) | payer SELFPAY ==
[2022-10-26 00:28] VITALS: BMI 25.3
[2022-10-26] MEDS ORDERED: diazePAM 5 MG TABLET PO ONE (01:03)
[2022-10-26] MEDS ORDERED: diazePAM 5 MG TABLET PO PRN (01:03)
[2022-10-26] MEDS ORDERED: guaiFENesin 600 MG TABLET.ER (FP) PO PRN (01:04)
[2022-10-26] MEDS ORDERED: POLYETHYLENE GLYCOL (HEALTHYLAX) 3350 17 GM PACKET PO PRN (01:04)
[2022-10-26] MEDS ORDERED: ACETAMINOPHEN 325 MG TABLET (FP) PO PRN (01:04)
[2022-10-26] MEDS ORDERED: NALOXONE HCL (KLOXXADO) 8 MG SPRAY NS PRN (01:04)
[2022-10-26] MEDS ORDERED: BENZONATATE 200 MG CAPSULE PO PRN (01:04)
[2022-10-26] MEDS ORDERED: IBUPROFEN 400 MG TABLET (FP) PO PRN (01:04)
[2022-10-26] MEDS ORDERED: NICOTINE POLACRILEX 2 MG GUM BUC PRN (01:04)
[2022-10-26] MEDS ORDERED: BISMUTH SUBSALICYLATE 524 MG/30 ML PO PRN (01:04)
[2022-10-26] MEDS ORDERED: NALOXONE HCL 0.4 MG/ML VIAL IM PRN (01:04)
[2022-10-26] MEDS ORDERED: DICYCLOMINE HCL 10 MG CAPSULE PO PRN (01:04)
[2022-10-26] MEDS ORDERED: MAG HYDROX/AL HYDROX/SIMETH 30 ML UNIT-DOSE CUP PO PRN (01:04)
[2022-10-26] MEDS ORDERED: ONDANSETRON *ODT* 4 MG TABLET SL PRN (01:04)
[2022-10-26] MEDS ORDERED: METHOCARBAMOL 500 MG TABLET PO PRN (01:04)
[2022-10-26] MEDS ORDERED: hydrOXYzine PAMOATE 25 MG CAPSULE (FP) PO PRN (01:04)
[2022-10-26] MEDS ORDERED: LOPERAMIDE HCL 2 MG CAPSULE PO PRN (01:04)
[2022-10-26] MEDS ORDERED: BENZOCAINE/MENTHOL (CHLORASEPTIC ) LOZENGE MM PRN (01:04)
[2022-10-26] MEDS ORDERED: MAGNESIUM HYDROX 2400MG/30ML ORAL SUSPENSION 30 ML CUP PO PRN (01:04)
[2022-10-26] MEDS ORDERED: IBUPROFEN 600 MG TABLET (FP) PO PRN (01:04)
[2022-10-26] MEDS: diazePAM 5 MG TABLET PO SCH ×2 (05:56→10:27)
[2022-10-26 06:40] VITALS: TEMP 97.7
[2022-10-26 09:17] VITALS: BP 133/75; PULSE 88; RESP 20
[2022-10-26] MEDS ORDERED: NICOTINE 7 MG/24 HOURS TOPICAL PATCH TD SCH (10:00)
[2022-10-26] MEDS ORDERED: PRENATAL VITAMINS W/ FOLIC ACID TABLET (FP) PO SCH (10:00)
[2022-10-26] MEDS ORDERED: THIAMINE HCL 100 MG TABLET (FP) PO SCH (22:00)
[2022-10-26] MEDS ORDERED: MELATONIN 5 MG TABLETS PO SCH (22:00)
[2022-10-27] MEDS ORDERED: diazePAM 5 MG TABLET PO SCH (06:00)
[2022-10-28] MEDS ORDERED: diazePAM 5 MG TABLET PO SCH (06:00)
[2022-10-29] MEDS ORDERED: diazePAM 5 MG TABLET PO ONE (06:00)
== END 2022-10-26 11:15 | disposition left against medical advice (07) | DRG 770 ==
LOC: YASAS 23:42 → Y3N 10-26 01:29
PROVIDERS: ADMIT Allergy & Immunology; ATTEND Allergy & Immunology
PROC: HZ2ZZZZ Detoxification Services for Substance Abuse Treatment (ICD-10-PCS; principal; 2022-10-26)
DX: F10.230 Alcohol dependence with withdrawal, uncomplicated (principal); F11.20 Opioid dependence, uncomplicated; F14.20 Cocaine dependence, uncomplicated; F12.20 Cannabis dependence, uncomplicated; F17.210 Nicotine dependence, cigarettes, uncomplicated; F41.8 Other specified anxiety disorders; B18.2 Chronic viral hepatitis C; Z86.59 Personal history of other mental and behavioral disorders
CPT/HCPCS: 87635; 87811